=== PATIENT | male | born 1950 | race Caucasian/White ===

== ENCOUNTER 2016-10-08 09:37 | Inpatient (IN) ==
[2016-10-15] MEDS: Celecoxib 100 MG CAPSULE PO SCH
[2016-10-15] MEDS: Sennosides/Docusate Sodium TABLET PO SCH ×2 (00:01→22:16)
[2016-10-15] MEDS: Acetaminophen 325 MG TABLET PO SCH ×3 (00:02→18:10)
[2016-10-15] MEDS: *HR* LORazepam 1 MG TABLET PO PRN ×2 (00:03→22:17)
[2016-10-15 05:54] LABS: INR 2.9; Prothrombin Time 32.2 Seconds (9.4-12.1)
[2016-10-15 05:57] LABS: Activated Partial Thrombo Time 37.3 Seconds (26.0-36.0)
[2016-10-15 06:00] LABS: Basophils # 0.1 K/mcL (0.0-0.2); Basophils % 0.7 %; Eosinophils # 0.2 K/mcL (0.0-0.6); Eosinophils % 2.4 %; Hematocrit 29.2 % (37.5-50.1); Immature Granulocytes % 7.7 % (0-4); Lymphocytes # 0.6 K/mcL (0.6-4.6); Mean Corpuscular HGB Conc 30.8 g/dL (31.6-35.5); Mean Corpuscular Hemoglobin 27.2 pg (28.0-33.3); Mean Corpuscular Volume 88.2 fL (83.0-100.0); Mean Platelet Volume 9.5 fL (9.4-12.4); Monocytes # 0.5 K/mcL (0.0-1.3); Neutrophils # 5.3 K/mcL (1.6-8.9); Nucleated Red Blood Cells 0.3 /100 WBC (0); Platelet Count 398 K/mcL (140-400); Red Blood Count 3.31 M/mcL (4.19-5.50); Segmented Neutrophils % 74.2 %
[2016-10-15 06:05] LABS: Calcium 8.5 mg/dL (8.6-10.8)
[2016-10-15 06:14] LABS: Anisocytosis 1+ (Not Present); Platelet Estimate Normal (Normal)
[2016-10-15 06:17] LABS: Macrocytosis Present (Not Present); Microcytosis Present (Not Present)
[2016-10-15] MEDS: Spironolactone 25 MG TABLET PO SCH (08:21)
[2016-10-15] MEDS: MethylPREDNISolone 4 MG TABLET PO SCH ×3 (08:22→22:15)
[2016-10-15] MEDS: Ascorbic Acid 500 MG TABLET PO SCH (08:22)
--- NOTE | 2016-10-15 10:55 | Internal Med History&Physical ---
Date of Encounter: 10/15/16 Time of Encounter: 14:00 Assessment and Plan (1) CKD (chronic kidney disease) Current visit: Yes Status: Acute The changes in his renal function are noted but these are chronic. Qualifiers: Chronic kidney disease stage: stage 3 (moderate) Qualified Code(s): N18.3 - Chronic kidney disease, stage 3 (moderate) (2) HTN (hypertension) Current visit: Yes Status: Acute Blood pressure is controlled Qualifiers: Hypertension type: essential hypertension Qualified Code(s): I10 - Essential (primary) hypertension (3) History of lumbar laminectomy for spinal cord decompression Current visit: Yes Status: Acute Postop for the reasons above (4) Hx of decompressive lumbar laminectomy Current visit: Yes Status: Acute Postoperative the reason above. patient's third thoracic surgery. Internal Medicine - H&P: HPI Admitted From: Hospital to Hospital Transfer Plans for Post Hospital Care: Home History of present illness: Mr. Hunt is a 66 year old male Past Med Surg Social Fam HX - Past Medical History Medical history: arthritis, DVT, GERD, hyperlipidemia, hypertension, kidney stones, renal disease, other Psychiatric history: anxiety - Social History Smoking Status: Unknown if ever smoked Smokeless Tobacco Status: No Alcohol use: none Drug use: none - Family History Mother History Unknown: Yes Father History Unknown: Yes Internal Medicine - H&P: Meds Acetaminophen [Tylenol] 975 mg PO Q8HR 10/14/16 [History] Ascorbic Acid [C-1000] 1,000 mg PO DAILY 10/14/16 [History] Calcitriol [Rocaltrol] 0.25 mcg PO HS 10/14/16 [History] Celecoxib [Celebrex] 100 mg PO BID 10/14/16 [History] Cyclobenzaprine [Flexeril] 10 mg PO TID PRN 10/14/16 [History] Ferrous Sulfate [Iron] 325 mg PO BID 10/14/16 [History] HydrALAZINE 50 mg PO BID 10/14/16 [History] Hydroxychloroquine [Plaquenuil] 200 mg PO BID 10/14/16 [History] LORazepam [Ativan] 1 mg PO TID PRN 10/14/16 [History] Losartan [Cozaar] 25 mg PO DAILY 10/14/16 [History] MethylPREDNISolone [Medrol] 4 mg PO BID 10/14/16 [History] Metoprolol XL (24 HR) Succ [Toprol XL] 25 mg PO HS 10/14/16 [History] OxyCODONE Immed Rel [Roxicodone 5 MG] 5 mg PO Q4H PRN 10/14/16 [History] Paroxetine HCl [Paxil] 20 mg PO DAILY 10/14/16 [History] Quetiapine Fumarate [SEROquel] 12.5 mg PO HS 10/14/16 [History] Sennosides/Docusate Sodium [Senna-S Tablet] 1 tab PO HS 10/14/16 [History] Sodium Bicarbonate 650 mg PO BID 10/14/16 [History] Spironolact/Hydrochlorothiazid [Aldactazide 25-25 Tablet] 1 each PO DAILY [History] Warfarin [Coumadin] 4 mg PO 1800 10/14/16 [History] Zolpidem [Ambien] 5 mg PO HS PRN 10/14/16 [History] Allergies carvedilol [From Coreg] Allergy (Verified 10/14/16 20:57) Gastrointestinal Upset diphenhydramine [From Benadryl] Allergy (Verified 10/14/16 20:57) Chills All Systems PM: A 10-system review of systems was performed and is negative for pertinent findings except as documented above in the HPI. - Constitutional Vitals: Temp Pulse Resp BP Pulse Ox 98.5 F 110 16 125/82 94 L 10/15/16 07:05 10/15/16 07:05 10/15/16 07:05 10/15/16 07:05 10/15/16 07:05 - Head Head exam: Present: atraumatic, normal inspection, normocephalic - Neck Neck exam general surgery: Present: supple, trachea midline. Absent: lymphadenopathy - Respiratory Respiratory exam: Present: CTAB. Absent: accessory muscle use, rales, rhonchi, wheezes - Cardiovascular Cardiovascular exam: Present: RRR, +S1, +S2. Absent: diastolic murmur, gallop, rubs, systolic murmur - GI/Abdominal GI/Abdominal exam: Present: normal bowel sounds, soft, no peritoneal signs. Absent: distended, tenderness - Back Exam Back exam: Present: tenderness Additional comments: Patient's dressings are clean and dry. Internal Med - H&P Results - Labs CBC & Chem 7: 10/15/16 05:25 10/15/16 05:25 Labs: Short CBC 10/15/16 Range/Units 05:25 WBC 7.2 (4.3-11.1) K/mcL Hgb 9.0 L (12.9-16.9) g/dL Hct 29.2 L (37.5-50.1) % Plt Count 398 (140-400) K/mcL Neutrophils # 5.3 (1.6-8.9) K/mcL BMP 10/15/16 05:25 Sodium 139 Potassium 5.0 H Chloride 113 H Carbon Dioxide 17 L BUN 34 H Creatinine 1.60 H Glucose 98 Calcium 8.5 L Lab is stable for patient
--- NOTE | 2016-10-15 11:28 | Internal Med History&Physical ---
Date of Encounter: 10/20/16 Time of Encounter: 11:25 Assessment and Plan (1) HTN (hypertension) Current visit: No Status: Acute Loud pressures well controlled Qualifiers: Hypertension type: essential hypertension Qualified Code(s): I10 - Essential (primary) hypertension (2) History of lumbar laminectomy for spinal cord decompression Current visit: Yes Status: Acute The spinal cord compression and postop complications. (3) Hx of decompressive lumbar laminectomy Current visit: Yes Status: Acute Patient is spinal stenosis. An extensive surgery. CV because he had developed a fracture at T11 with severe kyphotic deformity because of his severe osteoporosis. He apparently developed a PE postop he has comorbidities of Jie Johan chronic kidney disease, disorder etc. He has hyperlipidemia hypertension and arthritis osteo myelitis (4) CKD (chronic kidney disease) Current visit: No Status: Acute Will follow. Qualifiers: Chronic kidney disease stage: stage 3 (moderate) Qualified Code(s): N18.3 - Chronic kidney disease, stage 3 (moderate) Internal Medicine - H&P: HPI Admitted From: Hospital to Hospital Transfer (Patient had severe degenerative thoracic disease. He had extensive rodding of his posterior thoracic vertebrae. ) History of present illness: Mr. Hunt is a 66 year old male Who is here now for rehabilitation after his extensive back surgery. Past Med Surg Social Fam HX - Past Medical History Medical history: arthritis, DVT (Patient by history apparently a PE postop.), GERD, hyperlipidemia, hypertension, kidney stones, renal disease, other Psychiatric history: anxiety - Social History Smoking Status: Unknown if ever smoked Smokeless Tobacco Status: No Alcohol use: none Drug use: none - Family History Mother History Unknown: Yes Father History Unknown: Yes Internal Medicine - H&P: Meds Acetaminophen [Tylenol] 975 mg PO Q8HR 10/14/16 [History] Ascorbic Acid [C-1000] 1,000 mg PO DAILY 10/14/16 [History] Calcitriol [Rocaltrol] 0.25 mcg PO HS 10/14/16 [History] Celecoxib [Celebrex] 100 mg PO BID 10/14/16 [History] Cyclobenzaprine [Flexeril] 10 mg PO TID PRN 10/14/16 [History] Ferrous Sulfate [Iron] 325 mg PO BID 10/14/16 [History] HydrALAZINE 50 mg PO BID 10/14/16 [History] Hydroxychloroquine [Plaquenuil] 200 mg PO BID 10/14/16 [History] LORazepam [Ativan] 1 mg PO TID PRN 10/14/16 [History] Losartan [Cozaar] 25 mg PO DAILY 10/14/16 [History] MethylPREDNISolone [Medrol] 4 mg PO BID 10/14/16 [History] Metoprolol XL (24 HR) Succ [Toprol XL] 25 mg PO HS 10/14/16 [History] OxyCODONE Immed Rel [Roxicodone 5 MG] 5 mg PO Q4H PRN 10/14/16 [History] Paroxetine HCl [Paxil] 20 mg PO DAILY 10/14/16 [History] Quetiapine Fumarate [SEROquel] 12.5 mg PO HS 10/14/16 [History] Sennosides/Docusate Sodium [Senna-S Tablet] 1 tab PO HS 10/14/16 [History] Sodium Bicarbonate 650 mg PO BID 10/14/16 [History] Spironolact/Hydrochlorothiazid [Aldactazide 25-25 Tablet] 1 each PO DAILY [History] Warfarin [Coumadin] 4 mg PO 1800 10/14/16 [History] Zolpidem [Ambien] 5 mg PO HS PRN 10/14/16 [History] Allergies carvedilol [From Coreg] Allergy (Verified 10/14/16 20:57) Gastrointestinal Upset diphenhydramine [From Benadryl] Allergy (Verified 10/14/16 20:57) Chills All Systems PM: A 10-system review of systems was performed and is negative for pertinent findings except as documented above in the HPI. - Constitutional Vitals: Temp Pulse Resp BP Pulse Ox 97.2 F L 104 18 115/71 96 10/15/16 10:55 10/15/16 10:55 10/15/16 10:55 10/15/16 10:55 10/15/16 10:55 - Head Head exam: Present: atraumatic, normal inspection, normocephalic - Neck Neck exam general surgery: Present: supple, trachea midline. Absent: lymphadenopathy - Respiratory Respiratory exam: Present: CTAB. Absent: accessory muscle use, rales, rhonchi, wheezes - Cardiovascular Cardiovascular exam: Present: RRR, +S1, +S2. Absent: diastolic murmur, gallop, rubs, systolic murmur - GI/Abdominal GI/Abdominal exam: Present: normal bowel sounds, soft, no peritoneal signs. Absent: distended, tenderness - Extremities Exam Extremities exam: Present: warm, radial pulses palpable and symetrical. Absent : calf tenderness, cyanotic, pedal edema Additional comments: Patient has very atrophic extremities. There are chronic changes of her arthritic and swan-neck deformities in his hands etc. 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 We will follow-up
[2016-10-15] MEDS: Celecoxib 200 MG CAPSULE PO SCH ×2 (12:59→22:15)
[2016-10-15] MEDS: *HR* OxyCODONE Immed Rel 5 MG TABLET PO PRN ×2 (14:42→22:18)
[2016-10-15] MEDS ORDERED: *HR* Warfarin 4 MG TABLET PO SCH (18:00)
[2016-10-15] MEDS: *HR* Warfarin 3 MG TABLET PO SCH (18:10)
[2016-10-15] MEDS: Metoprolol XL (24 HR) Succ 25 MG TAB.ER.24H PO SCH (22:17)
[2016-10-16] MEDS: Acetaminophen 325 MG TABLET PO SCH ×4 (01:00→22:19)
[2016-10-16 05:33] LABS: INR 3.5; Prothrombin Time 38.9 Seconds (9.4-12.1)
[2016-10-16] MEDS: Spironolactone 25 MG TABLET PO SCH (08:27)
[2016-10-16] MEDS: Ascorbic Acid 500 MG TABLET PO SCH (08:27)
[2016-10-16] MEDS: Celecoxib 200 MG CAPSULE PO SCH ×2 (08:28→22:18)
[2016-10-16] MEDS: MethylPREDNISolone 4 MG TABLET PO SCH ×2 (08:29→22:18)
[2016-10-16] MEDS: *HR* OxyCODONE Immed Rel 5 MG TABLET PO PRN ×2 (11:46→16:45)
--- NOTE | 2016-10-16 13:59 | Internal Med Progress Note ---
Date of Encounter: 10/15/16 Time of Encounter: 14:00 - Assessment and plan (1) CKD (chronic kidney disease) Current Visit: Yes Status: Acute Assessment and plan: Changes noted but are stable Qualifiers: Chronic kidney disease stage: stage 3 (moderate) Qualified Code(s): N18.3 - Chronic kidney disease, stage 3 (moderate) (2) HTN (hypertension) Current Visit: Yes Status: Acute Assessment and plan: Blood pressure is well controlled fact a little low Qualifiers: Hypertension type: essential hypertension Qualified Code(s): I10 - Essential (primary) hypertension (3) History of lumbar laminectomy for spinal cord decompression Current Visit: Yes Status: Acute Assessment and plan: Agents here for rehabilitation status post lumbar laminectomy decompression (4) Hx of decompressive lumbar laminectomy Current Visit: Yes Status: Acute Assessment and plan: This is the surgery for which patient is here receiving therapy. This is his third similar surgery - Subjective Interval history: Patient had some pain which was relieved by Percocet and generally is working with the therapist - Constitutional Vitals: Temp Pulse Resp BP Pulse Ox 98.6 F 88 16 103/49 96 10/16/16 07:31 10/16/16 07:31 10/16/16 07:31 10/16/16 07:31 10/16/16 07:31 - Head Head exam: Present: atraumatic, normocephalic - Respiratory Respiratory exam: Present: CTAB. Absent: accessory muscle use, rales, rhonchi, wheezes - Cardiovascular Cardiovascular exam: Present: RRR, +S1, +S2. Absent: diastolic murmur, gallop, rubs, systolic murmur - GI/Abdominal GI/Abdominal exam: Present: normal bowel sounds, soft, no peritoneal signs. Absent: distended, tenderness Internal Medicine: Result - Labs CBC & Chem 7: 10/15/16 05:25 10/15/16 05:25 Labs: Well lab is stable - ABG Interpretation ABG results: PT/INR, D-dimer PT 38.9 Seconds (9.4-12.1) H 10/16/16 05:10 Consult Discharge Plan - Plan Referrals: Louis Farrar MD [Primary Care Provider] -
[2016-10-16] MEDS: *HR* Warfarin 3 MG TABLET PO SCH (18:23)
[2016-10-16] MEDS: Metoprolol XL (24 HR) Succ 25 MG TAB.ER.24H PO SCH (22:19)
[2016-10-16] MEDS: *HR* LORazepam 1 MG TABLET PO PRN (22:19)
[2016-10-16] MEDS: Sennosides/Docusate Sodium TABLET PO SCH (22:19)
[2016-10-17 05:36] LABS: Prothrombin Time 55.2 Seconds (9.4-12.1)
[2016-10-17 05:37] LABS: INR 4.9
[2016-10-17] MEDS: Acetaminophen 325 MG TABLET PO SCH ×2 (09:55→17:39)
[2016-10-17] MEDS: Celecoxib 200 MG CAPSULE PO SCH ×2 (09:56→21:36)
[2016-10-17] MEDS: MethylPREDNISolone 4 MG TABLET PO SCH ×2 (09:56→21:37)
[2016-10-17] MEDS: Ascorbic Acid 500 MG TABLET PO SCH (09:56)
[2016-10-17] MEDS: Spironolactone 25 MG TABLET PO SCH (09:56)
[2016-10-17] MEDS: Celecoxib 100 MG CAPSULE PO SCH (10:06)
--- NOTE | 2016-10-17 12:28 | Internal Med Progress Note ---
Date of Encounter: 10/17/16 Time of Encounter: 12:00 - Assessment and plan (1) CKD (chronic kidney disease) Current Visit: Yes Status: Acute Assessment and plan: Chronic noted Qualifiers: Chronic kidney disease stage: stage 3 (moderate) Qualified Code(s): N18.3 - Chronic kidney disease, stage 3 (moderate) (2) HTN (hypertension) Current Visit: Yes Status: Acute Assessment and plan: Blood pressures well controlled Qualifiers: Hypertension type: essential hypertension Qualified Code(s): I10 - Essential (primary) hypertension (3) History of lumbar laminectomy for spinal cord decompression Current Visit: Yes Status: Acute Assessment and plan: This the reason for the admission for rehabilitation (4) Hx of decompressive lumbar laminectomy Current Visit: Yes Status: Acute Assessment and plan: The above - Subjective Interval history: Patient had some pain which was relieved by Percocet and generally is working with the therapist. Working with the therapist and having no complaints today - Constitutional Vitals: Temp Pulse Resp BP Pulse Ox 97.2 F L 71 18 113/74 96 10/17/16 07:34 10/17/16 07:34 10/17/16 07:34 10/17/16 07:34 10/17/16 07:34 - Head Head exam: Present: atraumatic, normocephalic - Neck Neck exam general surgery: Present: supple, trachea midline. Absent: lymphadenopathy - Respiratory Respiratory exam: Present: CTAB. Absent: accessory muscle use, rales, rhonchi, wheezes - Cardiovascular Cardiovascular exam: Present: RRR, +S1, +S2. Absent: diastolic murmur, gallop, rubs, systolic murmur Internal Medicine: Result - Labs CBC & Chem 7: 10/15/16 05:25 10/15/16 05:25 Labs: Labs unchanged - ABG Interpretation ABG results: PT/INR, D-dimer PT 55.2 Seconds (9.4-12.1) H* 10/17/16 05:00 Consult Discharge Plan - Plan Referrals: Louis Farrar MD [Primary Care Provider] -
[2016-10-17] MEDS: MOM Conc 10 ML UD.LIQ PO SCH ×2 (17:38→21:37)
[2016-10-17] MEDS: Sennosides/Docusate Sodium TABLET PO SCH ×2 (17:39→21:36)
[2016-10-17] MEDS: Metoprolol XL (24 HR) Succ 25 MG TAB.ER.24H PO SCH (21:36)
[2016-10-17] MEDS: *HR* LORazepam 1 MG TABLET PO PRN (21:36)
[2016-10-18] MEDS: Acetaminophen 325 MG TABLET PO SCH ×3 (01:00→16:26)
[2016-10-18 05:47] LABS: Prothrombin Time 53.1 Seconds (9.4-12.1)
[2016-10-18 05:48] LABS: INR 4.7
[2016-10-18] MEDS: Ascorbic Acid 500 MG TABLET PO SCH (09:21)
[2016-10-18] MEDS: Celecoxib 200 MG CAPSULE PO SCH ×2 (09:21→21:02)
[2016-10-18] MEDS: Spironolactone 25 MG TABLET PO SCH (09:22)
[2016-10-18] MEDS: MethylPREDNISolone 4 MG TABLET PO SCH ×2 (09:22→21:03)
[2016-10-18] MEDS: *HR* LORazepam 1 MG TABLET PO PRN (21:01)
[2016-10-18] MEDS: Metoprolol XL (24 HR) Succ 25 MG TAB.ER.24H PO SCH (21:02)
[2016-10-18] MEDS: Sennosides/Docusate Sodium TABLET PO SCH (21:03)
[2016-10-18] MEDS: MOM Conc 10 ML UD.LIQ PO SCH (21:13)
--- NOTE | 2016-10-18 23:02 | Internal Med Progress Note ---
Date of Encounter: 10/18/16 Time of Encounter: 22:59 - Assessment and plan (1) H/O spinal fusion Current Visit: Yes Status: Acute Assessment and plan: Pain well-controlled. PT OT continue to show improvement in terms of transfer gait. Increasing distance as tolerated. - Time Spent With Patient less than 15 minutes - Subjective Interval history: Feeling better. Pain controlled with Tylenol. Constipation resolved. No shortness of breath. No chest pain. No nausea vomiting abdominal pain - Constitutional Vitals: Temp Pulse Resp BP Pulse Ox 98.2 F 94 15 125/68 95 10/18/16 18:55 10/18/16 18:55 10/18/16 18:55 10/18/16 18:55 10/18/16 18:55 General appearance: Present: A&O X 3, pleasant, no acute distress - Respiratory Respiratory exam: Present: CTAB. Absent: accessory muscle use, rales, rhonchi, wheezes - Cardiovascular Cardiovascular exam: Present: RRR, +S1, +S2. Absent: diastolic murmur, gallop, rubs, systolic murmur - GI/Abdominal GI/Abdominal exam: Present: normal bowel sounds, soft, no peritoneal signs. Absent: distended, tenderness - Extremities Exam Extremities exam: Present: warm, radial pulses palpable and symetrical. Absent : calf tenderness, cyanotic, pedal edema - Incison Incision: Present: clean and dry - Neurological Exam Neurological exam: Present: CN II-XII intact, oriented X3, no focal deficits. Absent: pronater drift, facial droop, speech deficit Internal Medicine: Result - Labs CBC & Chem 7: 10/15/16 05:25 10/15/16 05:25 - ABG Interpretation ABG results: PT/INR, D-dimer PT 53.1 Seconds (9.4-12.1) H* 10/18/16 05:08 Consult Discharge Plan - Plan Referrals: Louis Farrar MD [Primary Care Provider] -
[2016-10-19] MEDS: Acetaminophen 325 MG TABLET PO SCH ×3 (00:30→16:19)
[2016-10-19 05:32] LABS: Basophils % 0.5 %; Eosinophils # 0.2 K/mcL (0.0-0.6); Hematocrit 25.1 % (37.5-50.1); Hemoglobin 7.8 g/dL (12.9-16.9); Immature Granulocytes % 1.6 % (0-4); Lymphocytes # 0.9 K/mcL (0.6-4.6); Lymphocytes % 23.8 %; Mean Corpuscular HGB Conc 31.1 g/dL (31.6-35.5); Mean Corpuscular Hemoglobin 27.1 pg (28.0-33.3); Mean Corpuscular Volume 87.2 fL (83.0-100.0); Mean Platelet Volume 9.4 fL (9.4-12.4); Monocytes # 0.5 K/mcL (0.0-1.3); Monocytes % 12.2 %; Neutrophils # 2.2 K/mcL (1.6-8.9); Platelet Count 382 K/mcL (140-400); Red Blood Count 2.88 M/mcL (4.19-5.50); Red Cell Distribution Width 17.7 % (11.5-14.5); Segmented Neutrophils % 57.9 %
[2016-10-19 05:33] LABS: INR 2.8; Prothrombin Time 31.3 Seconds (9.4-12.1)
[2016-10-19 05:47] LABS: Calcium 8.4 mg/dL (8.6-10.8); Potassium 4.8 mEq/L (3.5-4.5)
[2016-10-19] MEDS: MethylPREDNISolone 4 MG TABLET PO SCH ×2 (09:46→23:12)
[2016-10-19] MEDS: Spironolactone 25 MG TABLET PO SCH (09:46)
[2016-10-19] MEDS: Celecoxib 200 MG CAPSULE PO SCH ×2 (09:46→23:13)
[2016-10-19] MEDS: Ascorbic Acid 500 MG TABLET PO SCH (09:46)
--- NOTE | 2016-10-19 14:05 | Internal Med Progress Note ---
Date of Encounter: 10/19/16 Time of Encounter: 14:00 - Assessment and plan (1) CKD (chronic kidney disease) Current Visit: Yes Status: Acute Assessment and plan: Chronic kidney disease is noted Qualifiers: Chronic kidney disease stage: stage 3 (moderate) Qualified Code(s): N18.3 - Chronic kidney disease, stage 3 (moderate) (2) HTN (hypertension) Current Visit: Yes Status: Acute Assessment and plan: Blood pressure well controlled Qualifiers: Hypertension type: essential hypertension Qualified Code(s): I10 - Essential (primary) hypertension (3) History of lumbar laminectomy for spinal cord decompression Current Visit: Yes Status: Acute Assessment and plan: Third procedure. (4) Hx of decompressive lumbar laminectomy Current Visit: Yes Status: Acute Assessment and plan: Patient underwent most recently decompressive lumbar laminectomy with a very extensive incision. - Subjective Interval history: Ricardo is generally cooperating occasionally says is too tired. His endurance is very poor but considered what he has been through. He has atrophy of all 4 extremities is understandable - Constitutional Vitals: Temp Pulse Resp BP Pulse Ox 97.1 F L 96 18 127/80 95 10/19/16 07:22 10/19/16 07:22 10/19/16 07:22 10/19/16 07:22 10/18/16 18:55 General appearance: Present: A&O X 3, pleasant, no acute distress - Head Head exam: Present: normal inspection - Neck Neck exam general surgery: Present: supple, trachea midline. Absent: lymphadenopathy - Respiratory Respiratory exam: Present: CTAB. Absent: accessory muscle use, rales, rhonchi, wheezes - Cardiovascular Cardiovascular exam: Present: RRR, +S1, +S2. Absent: diastolic murmur, gallop, rubs, systolic murmur - GI/Abdominal GI/Abdominal exam: Present: normal bowel sounds, soft, no peritoneal signs. Absent: distended, tenderness Internal Medicine: Result - Labs CBC & Chem 7: 10/19/16 05:00 10/19/16 05:00 Labs: Short CBC 10/19/16 Range/Units 05:00 WBC 3.8 L (4.3-11.1) K/mcL Hgb 7.8 L (12.9-16.9) g/dL Hct 25.1 L (37.5-50.1) % Plt Count 382 (140-400) K/mcL Neutrophils # 2.2 (1.6-8.9) K/mcL BMP 10/19/16 05:00 Sodium 139 Potassium 4.8 H Chloride 111 H Carbon Dioxide 17 L BUN 43 H Creatinine 1.79 H Glucose 97 Calcium 8.4 L Follow his BUN and creatinine CE does have chronic renal failure now. Also need to follow H&H's to make sure they do not drop any further. - ABG Interpretation ABG results: PT/INR, D-dimer PT 31.3 Seconds (9.4-12.1) H 10/19/16 05:00 Consult Discharge Plan - Plan Referrals: Louis Farrar MD [Primary Care Provider] -
[2016-10-19] MEDS: *HR* OxyCODONE Immed Rel 5 MG TABLET PO PRN ×2 (16:18→23:18)
[2016-10-19] MEDS: *HR* Warfarin 2 MG TABLET PO SCH (16:19)
[2016-10-19] MEDS: Metoprolol XL (24 HR) Succ 25 MG TAB.ER.24H PO SCH (23:14)
[2016-10-19] MEDS: *HR* LORazepam 1 MG TABLET PO PRN (23:14)
[2016-10-19] MEDS: Sennosides/Docusate Sodium TABLET PO SCH (23:15)
[2016-10-19] MEDS: MOM Conc 10 ML UD.LIQ PO SCH (23:29)
[2016-10-20] MEDS: Acetaminophen 325 MG TABLET PO SCH ×3 (00:16→16:16)
[2016-10-20 05:35] LABS: Hematocrit 26.4 % (37.5-50.1); Hemoglobin 8.2 g/dL (12.9-16.9)
[2016-10-20 05:36] LABS: INR 2.3; Prothrombin Time 25.1 Seconds (9.4-12.1)
[2016-10-20 05:50] LABS: Calcium 8.6 mg/dL (8.6-10.8)
[2016-10-20] MEDS: *HR* OxyCODONE Immed Rel 5 MG TABLET PO PRN ×2 (09:04→21:38)
[2016-10-20] MEDS: MethylPREDNISolone 4 MG TABLET PO SCH ×2 (09:04→21:35)
[2016-10-20] MEDS: Celecoxib 200 MG CAPSULE PO SCH ×2 (09:04→21:34)
[2016-10-20] MEDS: Spironolactone 25 MG TABLET PO SCH ×2 (09:04→09:05)
[2016-10-20] MEDS: Ascorbic Acid 500 MG TABLET PO SCH (09:04)
[2016-10-20] MEDS: Ondansetron ODT 4 MG TAB.RAPDIS SL PRN (12:14)
--- NOTE | 2016-10-20 13:37 | Internal Med Progress Note ---
Date of Encounter: 10/20/16 Time of Encounter: 13:00 - Assessment and plan (1) HTN (hypertension) Current Visit: No Status: Acute Assessment and plan: Blood pressure is actually low right now we will have to watch Qualifiers: Hypertension type: essential hypertension Qualified Code(s): I10 - Essential (primary) hypertension (2) History of lumbar laminectomy for spinal cord decompression Current Visit: Yes Status: Acute Assessment and plan: Juanita due to chronic problems. (3) Hx of decompressive lumbar laminectomy Current Visit: Yes Status: Acute Assessment and plan: status post decompression laminectomy (4) CKD (chronic kidney disease) Current Visit: No Status: Acute Assessment and plan: History of chronic kidney disease is noted Qualifiers: Chronic kidney disease stage: stage 3 (moderate) Qualified Code(s): N18.3 - Chronic kidney disease, stage 3 (moderate) - Time Spent With Patient less than 15 minutes - Subjective Interval history: Ricardo is generally cooperating occasionally says is too tired. His endurance is very poor but considered what he has been through. He has atrophy of all 4 extremities is understandable. This morning patient's blood pressure was low and his meds were held he may be right now overmedicated. - Constitutional Vitals: Temp Pulse Resp BP Pulse Ox 98.2 F 93 16 110/69 96 10/20/16 07:00 10/20/16 11:49 10/20/16 11:49 10/20/16 11:49 10/20/16 11:49 General appearance: Present: A&O X 3, pleasant, no acute distress - Head Head exam: Present: atraumatic, normal inspection, normocephalic - Neck Neck exam general surgery: Present: supple, trachea midline. Absent: lymphadenopathy - Respiratory Respiratory exam: Present: CTAB. Absent: accessory muscle use, rales, rhonchi, wheezes - Cardiovascular Cardiovascular exam: Present: RRR, +S1, +S2. Absent: diastolic murmur, gallop, rubs, systolic murmur - GI/Abdominal GI/Abdominal exam: Present: normal bowel sounds, soft, no peritoneal signs. Absent: distended, tenderness Internal Medicine: Result - Labs CBC & Chem 7: 10/20/16 05:15 10/20/16 05:15 Labs: Short CBC 10/20/16 Range/Units 05:15 Hgb 8.2 L (12.9-16.9) g/dL Hct 26.4 L (37.5-50.1) % BMP 10/20/16 05:15 Sodium 140 Potassium 5.0 H Chloride 112 H Carbon Dioxide 19 BUN 44 H Creatinine 1.73 H Glucose 99 Calcium 8.6 Lab in stable consider history of acute chronic renal failure - ABG Interpretation ABG results: PT/INR, D-dimer PT 25.1 Seconds (9.4-12.1) H 10/20/16 05:15 Consult Discharge Plan - Plan Referrals: Louis Farrar MD [Primary Care Provider] -
[2016-10-20] MEDS: *HR* Warfarin 2 MG TABLET PO SCH (17:43)
[2016-10-20] MEDS: Sennosides/Docusate Sodium TABLET PO SCH (21:36)
[2016-10-20] MEDS: *HR* LORazepam 1 MG TABLET PO PRN (21:37)
[2016-10-20] MEDS: MOM Conc 10 ML UD.LIQ PO SCH (21:38)
[2016-10-21] MEDS: Acetaminophen 325 MG TABLET PO SCH ×3 (01:00→16:22)
[2016-10-21 05:35] LABS: INR 2.7; Prothrombin Time 29.9 Seconds (9.4-12.1)
[2016-10-21] MEDS: Celecoxib 200 MG CAPSULE PO SCH ×2 (09:35→21:41)
[2016-10-21] MEDS: Ascorbic Acid 500 MG TABLET PO SCH (09:36)
[2016-10-21] MEDS: MethylPREDNISolone 4 MG TABLET PO SCH ×2 (09:36→21:43)
--- NOTE | 2016-10-21 12:23 | Internal Med Progress Note ---
Date of Encounter: 10/21/16 Time of Encounter: 12:22 - Assessment and plan (1) H/O spinal fusion Current Visit: Yes Status: Acute Assessment and plan: Pain well-controlled. PT OT continue to show improvement in terms of transfer gait. Increasing distance as tolerated. - Time Spent With Patient less than 15 minutes - Subjective Interval history: Feeling better. Pain controlled with Tylenol. Constipation resolved. No shortness of breath. No chest pain. No nausea vomiting abdominal pain - Constitutional Vitals: Temp Pulse Resp BP Pulse Ox 98.1 F 87 16 105/66 95 10/21/16 07:00 10/21/16 07:00 10/21/16 07:00 10/21/16 07:00 10/21/16 07:00 General appearance: Present: A&O X 3, pleasant, no acute distress - Respiratory Respiratory exam: Present: CTAB. Absent: accessory muscle use, rales, rhonchi, wheezes - Cardiovascular Cardiovascular exam: Present: RRR, +S1, +S2. Absent: diastolic murmur, gallop, rubs, systolic murmur - GI/Abdominal GI/Abdominal exam: Present: normal bowel sounds, soft, no peritoneal signs. Absent: distended, tenderness - Extremities Exam Extremities exam: Present: warm, radial pulses palpable and symetrical. Absent : calf tenderness, cyanotic, pedal edema - Neurological Exam Neurological exam: Present: CN II-XII intact, oriented X3, no focal deficits. Absent: pronater drift, facial droop, speech deficit Internal Medicine: Result - Labs CBC & Chem 7: 10/20/16 05:15 10/20/16 05:15 - ABG Interpretation ABG results: PT/INR, D-dimer PT 29.9 Seconds (9.4-12.1) H 10/21/16 05:20 Consult Discharge Plan - Plan Referrals: Louis Farrar MD [Primary Care Provider] -
[2016-10-21] MEDS: *HR* Warfarin 2 MG TABLET PO SCH (17:22)
[2016-10-21] MEDS: MOM Conc 10 ML UD.LIQ PO SCH (21:43)
[2016-10-21] MEDS: Sennosides/Docusate Sodium TABLET PO SCH (21:45)
[2016-10-21] MEDS: *HR* LORazepam 1 MG TABLET PO PRN (21:46)
[2016-10-21] MEDS: *HR* OxyCODONE Immed Rel 5 MG TABLET PO PRN (23:40)
[2016-10-22] MEDS: Acetaminophen 325 MG TABLET PO SCH ×3 (01:00→18:10)
[2016-10-22] MEDS: Celecoxib 200 MG CAPSULE PO SCH ×2 (09:10→20:42)
[2016-10-22] MEDS: Ascorbic Acid 500 MG TABLET PO SCH (09:10)
[2016-10-22] MEDS: MethylPREDNISolone 4 MG TABLET PO SCH ×2 (09:11→20:44)
[2016-10-22] MEDS: Spironolactone 25 MG TABLET PO SCH (09:11)
[2016-10-22] MEDS: *HR* OxyCODONE Immed Rel 5 MG TABLET PO PRN ×2 (12:30→20:43)
--- NOTE | 2016-10-22 14:50 | Internal Med Progress Note ---
Date of Encounter: 10/22/16 Time of Encounter: 14:50 - Assessment and plan (1) H/O spinal fusion Current Visit: Yes Status: Acute Assessment and plan: Pain well-controlled. PT OT continue to show improvement in terms of transfer gait. Increasing distance as tolerated. - Time Spent With Patient less than 15 minutes - Subjective Interval history: Feeling better. Pain controlled with Tylenol. Constipation resolved. No shortness of breath. No chest pain. No nausea vomiting abdominal pain - Constitutional Vitals: Temp Pulse Resp BP Pulse Ox 97.2 F L 94 16 133/62 96 10/22/16 07:00 10/22/16 07:00 10/22/16 07:00 10/22/16 07:00 10/22/16 07:00 General appearance: Present: A&O X 3, pleasant, no acute distress - Respiratory Respiratory exam: Present: CTAB. Absent: accessory muscle use, rales, rhonchi, wheezes - Cardiovascular Cardiovascular exam: Present: RRR, +S1, +S2. Absent: diastolic murmur, gallop, rubs, systolic murmur - GI/Abdominal GI/Abdominal exam: Present: normal bowel sounds, soft, no peritoneal signs. Absent: distended, tenderness - Extremities Exam Extremities exam: Present: warm, radial pulses palpable and symetrical. Absent : calf tenderness, cyanotic, pedal edema Internal Medicine: Result - Labs CBC & Chem 7: 10/20/16 05:15 10/20/16 05:15 - ABG Interpretation ABG results: PT/INR, D-dimer PT 29.9 Seconds (9.4-12.1) H 10/21/16 05:20 Consult Discharge Plan - Plan Referrals: Louis Farrar MD [Primary Care Provider] -
[2016-10-22] MEDS: *HR* Warfarin 2 MG TABLET PO SCH (18:10)
[2016-10-22] MEDS: *HR* LORazepam 1 MG TABLET PO PRN (20:42)
[2016-10-22] MEDS: MOM Conc 10 ML UD.LIQ PO SCH (20:44)
[2016-10-22] MEDS: Sennosides/Docusate Sodium TABLET PO SCH (20:44)
[2016-10-23] MEDS: Acetaminophen 325 MG TABLET PO SCH ×4 (00:53→23:44)
[2016-10-23 05:47] LABS: INR 3.4; Prothrombin Time 38.1 Seconds (9.4-12.1)
[2016-10-23] MEDS: Celecoxib 200 MG CAPSULE PO SCH ×2 (08:09→20:52)
[2016-10-23] MEDS: MethylPREDNISolone 4 MG TABLET PO SCH ×2 (08:11→20:52)
[2016-10-23] MEDS: Ascorbic Acid 500 MG TABLET PO SCH (08:11)
[2016-10-23] MEDS: Spironolactone 25 MG TABLET PO SCH (08:12)
--- NOTE | 2016-10-23 10:35 | Internal Med Progress Note ---
Date of Encounter: 10/23/16 Time of Encounter: 10:34 - Assessment and plan (1) H/O spinal fusion Current Visit: Yes Status: Acute Assessment and plan: Pain well-controlled. PT OT continue to show improvement in terms of transfer gait. Increasing distance as tolerated. - Time Spent With Patient less than 15 minutes - Subjective Interval history: Feeling better. Pain controlled with Tylenol. . No shortness of breath. No chest pain. No nausea vomiting abdominal pain - Constitutional Vitals: Temp Pulse Resp BP Pulse Ox 98.0 F 96 16 167/80 99 10/23/16 07:00 10/23/16 07:00 10/23/16 07:00 10/23/16 07:00 10/23/16 07:00 General appearance: Present: A&O X 3, pleasant, no acute distress - Respiratory Respiratory exam: Present: CTAB. Absent: accessory muscle use, rales, rhonchi, wheezes - Cardiovascular Cardiovascular exam: Present: RRR, +S1, +S2. Absent: diastolic murmur, gallop, rubs, systolic murmur - GI/Abdominal GI/Abdominal exam: Present: normal bowel sounds, soft, no peritoneal signs. Absent: distended, tenderness - Extremities Exam Extremities exam: Present: warm, radial pulses palpable and symetrical. Absent : calf tenderness, cyanotic, pedal edema - Incison Incision: Present: clean and dry Internal Medicine: Result - Labs CBC & Chem 7: 10/20/16 05:15 10/20/16 05:15 - ABG Interpretation ABG results: PT/INR, D-dimer PT 38.1 Seconds (9.4-12.1) H 10/23/16 05:25 Consult Discharge Plan - Plan Referrals: Louis Farrar MD [Primary Care Provider] -
[2016-10-23] MEDS: Sennosides/Docusate Sodium TABLET PO SCH (20:52)
[2016-10-23] MEDS: *HR* LORazepam 1 MG TABLET PO PRN (20:52)
[2016-10-23] MEDS: *HR* OxyCODONE Immed Rel 5 MG TABLET PO PRN (20:53)
[2016-10-23] MEDS: MOM Conc 10 ML UD.LIQ PO SCH (20:54)
--- NOTE | 2016-10-24 08:41 | Internal Med Progress Note ---
Date of Encounter: 10/24/16 Time of Encounter: 08:39 - Assessment and plan (1) H/O spinal fusion Current Visit: Yes Status: Acute Assessment and plan: Pain well-controlled. PT OT continue to show improvement in terms of transfer gait. Increasing distance as tolerated. (2) PUD (peptic ulcer disease) Current Visit: Yes Status: Chronic Assessment and plan: We will start Prilosec - Time Spent With Patient less than 15 minutes - Subjective Interval history: Complains of acid reflux symptoms in the past 2 days. He is to take something for acid stomach at home. Pain controlled with Tylenol. . No shortness of breath. No chest pain. No nausea vomiting abdominal pain - Constitutional Vitals: Temp Pulse Resp BP Pulse Ox 98.2 F 98 20 160/103 97 10/24/16 08:00 10/24/16 08:00 10/24/16 08:00 10/24/16 08:00 10/24/16 08:00 General appearance: Present: A&O X 3, pleasant, no acute distress - Respiratory Respiratory exam: Present: CTAB. Absent: accessory muscle use, rales, rhonchi, wheezes - Cardiovascular Cardiovascular exam: Present: RRR, +S1, +S2. Absent: diastolic murmur, gallop, rubs, systolic murmur - GI/Abdominal GI/Abdominal exam: Present: normal bowel sounds, soft - Incison Incision: Present: clean and dry Internal Medicine: Result - Labs CBC & Chem 7: 10/20/16 05:15 10/20/16 05:15 - ABG Interpretation ABG results: PT/INR, D-dimer PT 38.1 Seconds (9.4-12.1) H 10/23/16 05:25 Consult Discharge Plan - Plan Referrals: Louis Farrar MD [Primary Care Provider] -
[2016-10-24] MEDS: Celecoxib 200 MG CAPSULE PO SCH ×2 (08:53→21:37)
[2016-10-24] MEDS: MethylPREDNISolone 4 MG TABLET PO SCH ×2 (08:53→21:37)
[2016-10-24] MEDS: Acetaminophen 325 MG TABLET PO SCH ×2 (08:53→16:42)
[2016-10-24] MEDS: Ascorbic Acid 500 MG TABLET PO SCH (08:53)
[2016-10-24] MEDS: Spironolactone 25 MG TABLET PO SCH (08:54)
[2016-10-24] MEDS: Ondansetron ODT 4 MG TAB.RAPDIS SL PRN ×2 (12:58→19:54)
[2016-10-24] MEDS: Sennosides/Docusate Sodium TABLET PO SCH (21:39)
[2016-10-24] MEDS: *HR* LORazepam 1 MG TABLET PO PRN (21:39)
[2016-10-24] MEDS: MOM Conc 10 ML UD.LIQ PO SCH (21:40)
[2016-10-25] MEDS: Acetaminophen 325 MG TABLET PO SCH ×4 (03:29→17:24)
[2016-10-25 05:20] LABS: INR 2.1; Prothrombin Time 23.3 Seconds (9.4-12.1)
[2016-10-25 05:30] LABS: Basophils # 0.1 K/mcL (0.0-0.2); Eosinophils # 0.1 K/mcL (0.0-0.6); Eosinophils % 2.5 %; Hematocrit 27.8 % (37.5-50.1); Hemoglobin 8.8 g/dL (12.9-16.9); Immature Granulocytes % 7.2 % (0-4); Lymphocytes # 1.7 K/mcL (0.6-4.6); Lymphocytes % 33.7 %; Mean Corpuscular HGB Conc 31.7 g/dL (31.6-35.5); Mean Corpuscular Hemoglobin 27.2 pg (28.0-33.3); Mean Corpuscular Volume 85.8 fL (83.0-100.0); Monocytes # 0.6 K/mcL (0.0-1.3); Monocytes % 12.3 %; Neutrophils # 2.2 K/mcL (1.6-8.9); Platelet Count 328 K/mcL (140-400); Red Blood Count 3.24 M/mcL (4.19-5.50); Red Cell Distribution Width 17.2 % (11.5-14.5); Segmented Neutrophils % 43.3 %
[2016-10-25] MEDS: Ascorbic Acid 500 MG TABLET PO SCH (08:40)
[2016-10-25] MEDS: MethylPREDNISolone 4 MG TABLET PO SCH ×2 (08:40→22:12)
[2016-10-25] MEDS: Spironolactone 25 MG TABLET PO SCH (08:40)
[2016-10-25] MEDS: *HR* OxyCODONE Immed Rel 5 MG TABLET PO PRN (08:41)
[2016-10-25] MEDS: Celecoxib 200 MG CAPSULE PO SCH ×2 (08:41→22:12)
[2016-10-25] MEDS: Ondansetron ODT 4 MG TAB.RAPDIS SL PRN (09:59)
[2016-10-25] MEDS: *HR* LORazepam 1 MG TABLET PO PRN (11:45)
[2016-10-25] MEDS ORDERED: Ketorolac 60 MG/2 ML VIAL IM ONE (13:36)
[2016-10-25] MEDS ORDERED: Ketorolac 30 MG/ML VIAL IM ONE (13:48)
[2016-10-25] MEDS: *HR* Warfarin 2 MG TABLET PO SCH (17:25)
[2016-10-25] MEDS: Sennosides/Docusate Sodium TABLET PO SCH (22:12)
[2016-10-25] MEDS: MOM Conc 10 ML UD.LIQ PO SCH (22:20)
--- NOTE | 2016-10-26 03:20 | Internal Med Progress Note ---
Date of Encounter: 10/26/16 Time of Encounter: 03:17 - Assessment and plan (1) H/O spinal fusion Current Visit: Yes Status: Acute Assessment and plan: Pain well-controlled. PT OT continue to show improvement in terms of transfer gait. Increasing distance as tolerated. (2) PUD (peptic ulcer disease) Current Visit: Yes Status: Chronic Assessment and plan: Seems to be improving since starting Prilosec (3) Cephalgia Current Visit: Yes Status: Chronic Assessment and plan: CT head did not show any acute intracranial pathology. We will continue to treat symptomatically. Qualifiers: Headache type: tension-type Headache chronicity pattern: chronic headache Intractability: not intractable Qualified Code(s): G44.229 - Chronic tension -type headache, not intractable - Time Spent With Patient less than 15 minutes - Subjective Interval history: . Has been complaining of a headache as his temporal region for the past 24 hours on and off. Partial relief with Tylenol and Toradol. He states that he gets chronic headaches similar to this. . No shortness of breath. No chest pain. No nausea vomiting abdominal pain - Constitutional Vitals: Temp Pulse Resp BP Pulse Ox 97.9 F 101 16 112/82 95 10/25/16 19:00 10/25/16 19:00 10/25/16 19:00 10/25/16 19:00 10/25/16 19:00 General appearance: Present: A&O X 3, pleasant, no acute distress - Neck Neck exam general surgery: Present: supple, trachea midline. Absent: lymphadenopathy - Respiratory Respiratory exam: Present: CTAB. Absent: accessory muscle use, rales, rhonchi, wheezes - Cardiovascular Cardiovascular exam: Present: RRR, +S1, +S2. Absent: diastolic murmur, gallop, rubs, systolic murmur - Extremities Exam Extremities exam: Present: warm, radial pulses palpable and symetrical. Absent : calf tenderness, cyanotic, pedal edema - Neurological Exam Neurological exam: Present: CN II-XII intact, oriented X3, no focal deficits. Absent: pronater drift, facial droop, speech deficit Internal Medicine: Result - Labs CBC & Chem 7: 10/25/16 05:10 10/20/16 05:15 Labs: Short CBC 10/25/16 Range/Units 05:10 WBC 5.1 (4.3-11.1) K/mcL Hgb 8.8 L (12.9-16.9) g/dL Hct 27.8 L (37.5-50.1) % Plt Count 328 (140-400) K/mcL Neutrophils # 2.2 (1.6-8.9) K/mcL - ABG Interpretation ABG results: PT/INR, D-dimer PT 23.3 Seconds (9.4-12.1) H 10/25/16 05:10 - Impressions Impressions Head CT 10/25/16 17:36 IMPRESSION: No acute intracranial abnormality. D/ / Jaime Grossman MD / Jaime Grossman MD Interpreting Provider: Jaime Grossman MD Consult Discharge Plan - Plan Referrals: Louis Farrar MD [Primary Care Provider] -
[2016-10-26 05:27] LABS: Basophils % 0.7 %; Eosinophils # 0.1 K/mcL (0.0-0.6); Eosinophils % 2.6 %; Hematocrit 28.2 % (37.5-50.1); Hemoglobin 8.9 g/dL (12.9-16.9); Immature Granulocytes % 6.6 % (0-4); Lymphocytes # 1.6 K/mcL (0.6-4.6); Lymphocytes % 30.1 %; Mean Corpuscular HGB Conc 31.6 g/dL (31.6-35.5); Mean Corpuscular Hemoglobin 27.1 pg (28.0-33.3); Monocytes # 0.6 K/mcL (0.0-1.3); Monocytes % 10.3 %; Neutrophils # 2.7 K/mcL (1.6-8.9); Platelet Count 332 K/mcL (140-400); Red Blood Count 3.28 M/mcL (4.19-5.50); Red Cell Distribution Width 17.2 % (11.5-14.5); Segmented Neutrophils % 49.7 %
[2016-10-26 05:28] LABS: INR 2.1; Prothrombin Time 23.3 Seconds (9.4-12.1)
[2016-10-26 05:40] LABS: Calcium 8.3 mg/dL (8.6-10.8); Potassium 4.7 mEq/L (3.5-4.5)
[2016-10-26] MEDS: Acetaminophen 325 MG TABLET PO SCH ×3 (05:53→15:34)
[2016-10-26] MEDS: Celecoxib 200 MG CAPSULE PO SCH ×2 (09:05→20:59)
[2016-10-26] MEDS: MethylPREDNISolone 4 MG TABLET PO SCH ×2 (09:05→21:00)
[2016-10-26] MEDS: Ondansetron ODT 4 MG TAB.RAPDIS SL PRN ×2 (09:06→15:34)
[2016-10-26] MEDS: Spironolactone 25 MG TABLET PO SCH (09:07)
[2016-10-26] MEDS: Ascorbic Acid 500 MG TABLET PO SCH (09:13)
[2016-10-26] MEDS ORDERED: Metoclopramide 10 MG/2 ML VIAL IVP PRN (15:50)
[2016-10-26] MEDS: *HR* Warfarin 2 MG TABLET PO SCH (18:21)
[2016-10-26] MEDS: MOM Conc 10 ML UD.LIQ PO SCH (21:00)
[2016-10-26] MEDS: Sennosides 8.6 MG TABLET PO SCH (21:00)
[2016-10-26] MEDS: *HR* LORazepam 1 MG TABLET PO PRN (21:02)
[2016-10-27] MEDS: Acetaminophen 325 MG TABLET PO SCH ×3 (01:00→17:17)
[2016-10-27] MEDS: Ascorbic Acid 500 MG TABLET PO SCH (08:19)
[2016-10-27] MEDS: Sennosides 8.6 MG TABLET PO SCH ×2 (08:19→21:13)
[2016-10-27] MEDS: Spironolactone 25 MG TABLET PO SCH (08:20)
[2016-10-27] MEDS: MethylPREDNISolone 4 MG TABLET PO SCH ×2 (08:21→21:12)
[2016-10-27] MEDS: Ondansetron ODT 4 MG TAB.RAPDIS SL PRN (08:21)
[2016-10-27] MEDS: Celecoxib 200 MG CAPSULE PO SCH ×2 (08:21→21:11)
--- NOTE | 2016-10-27 15:26 | Internal Med Progress Note ---
Date of Encounter: 10/27/16 Time of Encounter: 15:24 - Assessment and plan (1) HTN (hypertension) Current Visit: No Status: Acute Assessment and plan: Blood pressure well controlled Qualifiers: Hypertension type: essential hypertension Qualified Code(s): I10 - Essential (primary) hypertension (2) History of lumbar laminectomy for spinal cord decompression Current Visit: Yes Status: Acute Assessment and plan: patient was here for. This is the third surgery. (3) Hx of decompressive lumbar laminectomy Current Visit: Yes Status: Acute (4) CKD (chronic kidney disease) Current Visit: No Status: Acute Assessment and plan: This is noted no significant change Qualifiers: Chronic kidney disease stage: stage 3 (moderate) Qualified Code(s): N18.3 - Chronic kidney disease, stage 3 (moderate) - Subjective Interval history: Patient still has problems of constipation. He is being discharged tomorrow. We will try fleets enema this evening. - Constitutional Vitals: Temp Pulse Resp BP Pulse Ox 98.1 F 100 16 130/76 97 10/27/16 07:00 10/27/16 07:00 10/27/16 07:00 10/27/16 07:00 10/27/16 07:00 General appearance: Present: A&O X 3, pleasant, no acute distress - Head Head exam: Present: atraumatic, normal inspection, normocephalic - Neck Neck exam general surgery: Present: supple, trachea midline. Absent: lymphadenopathy - Respiratory Respiratory exam: Present: CTAB. Absent: accessory muscle use, rales, rhonchi, wheezes - Cardiovascular Cardiovascular exam: Present: RRR, +S1, +S2. Absent: diastolic murmur, gallop, rubs, systolic murmur Internal Medicine: Result - Labs CBC & Chem 7: 10/26/16 04:55 10/26/16 04:55 Labs: Chronic renal failure labs otherwise stable - ABG Interpretation ABG results: PT/INR, D-dimer PT 23.3 Seconds (9.4-12.1) H 10/26/16 04:55 Consult Discharge Plan - Plan Referrals: dr. dea [Other] - 11/09/16 11:30 am (pt to have labs drawn 1 week prior to appointment as done in the past) Louis Rosas MD [Primary Care Provider] - 11/02/16 8:20 am (fax labs to dr rosas at [facility] [phone]) Zafar Rodriguez [Non-Partnered Physician] - 11/06/16 10:45 am (appointment at [address] [place] [address], [place] [address])
[2016-10-27] MEDS: *HR* Warfarin 2 MG TABLET PO SCH (17:17)
[2016-10-27] MEDS: MOM Conc 10 ML UD.LIQ PO SCH (21:12)
[2016-10-27] MEDS: *HR* LORazepam 1 MG TABLET PO PRN (21:14)
[2016-10-28] MEDS: Acetaminophen 325 MG TABLET PO SCH ×2 (01:00→08:51)
[2016-10-28 06:23] LABS: INR 3.1; Prothrombin Time 34.3 Seconds (9.4-12.1)
[2016-10-28 07:03] VITALS: BP 132/78
[2016-10-28] MEDS: Sennosides 8.6 MG TABLET PO SCH (08:50)
[2016-10-28] MEDS: Spironolactone 25 MG TABLET PO SCH (08:51)
[2016-10-28] MEDS: MethylPREDNISolone 4 MG TABLET PO SCH (08:51)
[2016-10-28] MEDS: Ascorbic Acid 500 MG TABLET PO SCH (08:52)
[2016-10-28] MEDS: Celecoxib 200 MG CAPSULE PO SCH (08:52)
--- NOTE | 2016-10-28 11:45 | Discharge Summary ---
Date of Encounter: 10/28/16 Time of Encounter: 11:43 - Discharge Diagnosis (1) HTN (hypertension) Priority: Secondary Status: Acute Comments: Blood pressures been well controlled Qualifiers: Hypertension type: essential hypertension Qualified Code(s): I10 - Essential (primary) hypertension (2) History of lumbar laminectomy for spinal cord decompression Priority: Primary Status: Acute Comments: Incisions clean and dry patient is progressing and ambulating in the leonard with his walker (3) Hx of decompressive lumbar laminectomy Priority: Primary Status: Acute (4) CKD (chronic kidney disease) Priority: Secondary Status: Acute Qualifiers: Chronic kidney disease stage: stage 3 (moderate) Qualified Code(s): N18.3 - Chronic kidney disease, stage 3 (moderate) - Discharge Medications Home Medications: Acetaminophen [Tylenol] 975 mg PO Q8HR 10/14/16 [History] Ascorbic Acid [C-1000] 1,000 mg PO DAILY 10/14/16 [History] Calcitriol [Rocaltrol] 0.25 mcg PO HS 10/14/16 [History] Celecoxib [Celebrex] 100 mg PO BID 10/14/16 [History] Cyclobenzaprine [Flexeril] 10 mg PO TID PRN 10/14/16 [History] Ferrous Sulfate [Iron] 325 mg PO BID 10/14/16 [History] HydrALAZINE 50 mg PO BID 10/14/16 [History] Hydroxychloroquine [Plaquenuil] 200 mg PO BID 10/14/16 [History] LORazepam [Ativan] 1 mg PO TID PRN 10/14/16 [History] Losartan [Cozaar] 25 mg PO DAILY 10/14/16 [History] MethylPREDNISolone [Medrol] 4 mg PO BID 10/14/16 [History] Metoprolol XL (24 HR) Succ [Toprol XL] 25 mg PO HS 10/14/16 [History] OxyCODONE Immed Rel [Roxicodone 5 MG] 5 mg PO Q4H PRN 10/14/16 [History] Paroxetine HCl [Paxil] 20 mg PO DAILY 10/14/16 [History] Quetiapine Fumarate [SEROquel] 12.5 mg PO HS 10/14/16 [History] Sennosides/Docusate Sodium [Senna-S Tablet] 1 tab PO HS 10/14/16 [History] Sodium Bicarbonate 650 mg PO BID 10/14/16 [History] Spironolact/Hydrochlorothiazid [Aldactazide 25-25 Tablet] 1 each PO DAILY [History] Warfarin [Coumadin] 4 mg PO 1800 10/14/16 [History] Zolpidem [Ambien] 5 mg PO HS PRN 10/14/16 [History] Allergies/Adverse Reactions: Allergies carvedilol [From Coreg] Allergy (Verified 10/14/16 20:57) Gastrointestinal Upset diphenhydramine [From Benadryl] Allergy (Verified 10/14/16 20:57) Chills Procedures/tests Complete & Pending: Procedures Performed prior 72 hours Category Date Time Status CT head/brain wo con [CT] Stat Cat Scan 10/25/16 17:36 Completed Date of admission: 10/14/16 19:34 Primary care physician: Louis Rosas MD Consults: 10/14/16 21:24 Consult to Occupational Therapy [CONS] Routine Comment: EVAL/TX Consult to Physical Therapy [CONS] Routine Comment: EVAL/TX Consult to Recreational Therapy [CONS] Routine Comment: Consult to Heater Helper [CONS] Routine Reason for SW Consult: D/C PLANNING 10/26/16 12:59 Consult to Wound Care [CONS] Routine Reason for Consult: wounds on rt ar and rt leg Time Notified: 13:00 Call Completed: Yes Discharging clinician: Abilio Wharton Anticipated date of discharge: 10/28/16 - Patient Status Disposition: Home Health Service Condition: Good Functional capacity at discharge: uses cane/walker Overall status at discharge: patient is progressing back to baseline - Discharge Instructions Instructions: Warfarin (By mouth) Follow Up With: dr. dea [Other] - 11/09/16 11:30 am (pt to have labs drawn 1 week prior to appointment as done in the past) Louis Rosas MD [Primary Care Provider] - 11/02/16 8:20 am (fax labs to dr rosas at [facility]. [phone]) Zafar Rodriguez [Non-Partnered Physician] - 11/06/16 10:45 am (appointment at [address] [place] [address], [place] [id number]) - Diet and Activity Activity: ambulate only with your walker Diet: advance to your usual diet Interval History: She came postoperatively after an extensive decompression laminectomy. Hospital course: Mr. Hunt is a 66 year old male is done well is ambulating in the leonard with his walker be discharged home accompanied was found today with home health. - Time Spent with Patient Total time spent providing and/or coordinating discharge services: Less than 30 minutes - Constitutional Vitals: Temp Pulse Resp BP Pulse Ox 97.8 F 90 18 132/78 96 10/28/16 07:02 10/28/16 07:02 10/28/16 07:02 10/28/16 07:02 10/28/16 07:02 General appearance: Present: A&O X 3, pleasant, no acute distress - Head Head exam: Present: atraumatic, normal inspection, normocephalic - Neck Neck exam general surgery: Present: supple, trachea midline. Absent: lymphadenopathy - Respiratory Respiratory exam: Present: CTAB. Absent: accessory muscle use, rales, rhonchi, wheezes - Cardiovascular Cardiovascular exam: Present: RRR, +S1, +S2. Absent: diastolic murmur, gallop, rubs, systolic murmur
--- NOTE | 2016-10-28 11:48 | Physician Discharge Referral ---
Home Health/Hosp Referral Info Provider in Charge Post Discharge: PCP - Diagnosis (1) HTN (hypertension) Priority: Secondary Status: Acute (2) History of lumbar laminectomy for spinal cord decompression Priority: Primary Status: Acute (3) Hx of decompressive lumbar laminectomy Priority: Primary Status: Acute (4) CKD (chronic kidney disease) Priority: Secondary Status: Acute - Respiratory Orders Smoking Cessation: Smoking cessation has been advised. For more information, call the [place] Tobacco Quit Line at 1-983-YBYE-NOW. - Diet/Nutrition Diet/Nutrition Orders: No Concentrated Sweets - Activity Activity Orders: Walker - Services Needed Following services are medically necessary services: Nursing, Physical Therapy, Occupational Therapy - Transfer Medications Home Medications: Acetaminophen [Tylenol] 975 mg PO Q8HR 10/14/16 [History] Ascorbic Acid [C-1000] 1,000 mg PO DAILY 10/14/16 [History] Calcitriol [Rocaltrol] 0.25 mcg PO HS 10/14/16 [History] Celecoxib [Celebrex] 100 mg PO BID 10/14/16 [History] Cyclobenzaprine [Flexeril] 10 mg PO TID PRN 10/14/16 [History] Ferrous Sulfate [Iron] 325 mg PO BID 10/14/16 [History] HydrALAZINE 50 mg PO BID 10/14/16 [History] Hydroxychloroquine [Plaquenuil] 200 mg PO BID 10/14/16 [History] LORazepam [Ativan] 1 mg PO TID PRN 10/14/16 [History] Losartan [Cozaar] 25 mg PO DAILY 10/14/16 [History] MethylPREDNISolone [Medrol] 4 mg PO BID 10/14/16 [History] Metoprolol XL (24 HR) Succ [Toprol XL] 25 mg PO HS 10/14/16 [History] OxyCODONE Immed Rel [Roxicodone 5 MG] 5 mg PO Q4H PRN 10/14/16 [History] Paroxetine HCl [Paxil] 20 mg PO DAILY 10/14/16 [History] Quetiapine Fumarate [SEROquel] 12.5 mg PO HS 10/14/16 [History] Sennosides/Docusate Sodium [Senna-S Tablet] 1 tab PO HS 10/14/16 [History] Sodium Bicarbonate 650 mg PO BID 10/14/16 [History] Spironolact/Hydrochlorothiazid [Aldactazide 25-25 Tablet] 1 each PO DAILY [History] Warfarin [Coumadin] 4 mg PO 1800 10/14/16 [History] Zolpidem [Ambien] 5 mg PO HS PRN 10/14/16 [History] Allergies/Adverse Reactions: Allergies carvedilol [From Coreg] Allergy (Verified 10/14/16 20:57) Gastrointestinal Upset diphenhydramine [From Benadryl] Allergy (Verified 10/14/16 20:57) Chills Certification: Further, I certify that my clinical findings support that this patient is homebound (i.e. absences from home require considerable and taxing effort and are for medical reasons or episcopal services or infrequently or short duration when for other reasons) because: Homebound Reason: Patient requires assistance of a person or device to safely leave home Attestation: My signature below is to certify that this patient is under my care and that I, or nurse practitioner, or a physician's outpatient physical therapist assistant working with me, has a face-to -face encounter with this patient.
== END 2016-10-28 14:18 | disposition home health service (06) | DRG 950 ==
LOC: INPGRE 10-14 19:34
PROVIDERS: ADMIT Internal Medicine; ATTEND Internal Medicine

== ENCOUNTER 2017-06-17 15:08 | Inpatient (IN) ==
[2017-06-18] MEDS ORDERED: *HR* OxyCODONE Immed Rel 5 MG TABLET PO PRN (02:44)
[2017-06-18 07:50] LABS: Basophils % 0.1 %; Eosinophils # 0.3 K/mcL (0.0-0.6); Eosinophils % 2.9 %; Hematocrit 23.6 % (37.5-50.1); Hemoglobin 7.7 g/dL (12.9-16.9); Immature Granulocytes % 7.9 % (0-4); Lymphocytes # 1.1 K/mcL (0.6-4.6); Lymphocytes % 11.4 %; Mean Corpuscular HGB Conc 32.6 g/dL (31.6-35.5); Mean Corpuscular Hemoglobin 29.3 pg (28.0-33.3); Mean Corpuscular Volume 89.7 fL (83.0-100.0); Mean Platelet Volume 11.3 fL (9.4-12.4); Monocytes # 0.7 K/mcL (0.0-1.3); Monocytes % 7.2 %; Neutrophils # 6.7 K/mcL (1.6-8.9); Red Blood Count 2.63 M/mcL (4.19-5.50); Red Cell Distribution Width 16.1 % (11.5-14.5); Segmented Neutrophils % 70.5 %
[2017-06-18 07:54] LABS: Platelet Count 323 K/mcL (140-400)
[2017-06-18 08:06] LABS: BUN/Creatinine Ratio 22 (6-26); Blood Urea Nitrogen 32 mg/dL (8-26); Carbon Dioxide 25 mEq/L (19-29); Chloride 105 mEq/L (98-109); Glucose 89 mg/dL (70-99); Osmolality,Calculated 290 (280-300); Potassium 3.9 mEq/L (3.5-4.5); Sodium 137 mEq/L (136-145); eGFR For African Americans > 60 (> 60); eGFR For Non-African Americans 50 (> 60)
[2017-06-18 08:16] LABS: Calcium 8.2 mg/dL (8.6-10.8)
[2017-06-18] MEDS ORDERED: Metoprolol XL (24 HR) Succ 25 MG TAB.ER.24H PO SCH (09:00)
[2017-06-18 10:23] LABS: Activated Partial Thrombo Time 25.7 Seconds (26.0-36.0)
[2017-06-18] MEDS: Ascorbic Acid 500 MG TABLET PO SCH (10:39)
[2017-06-18] MEDS: methylPREDNISolone 4 MG TABLET PO SCH ×2 (10:39→21:22)
[2017-06-18] MEDS: Aspirin 81 MG TAB.CHEW PO SCH (10:39)
[2017-06-18] MEDS: Acetaminophen 325 MG TABLET PO PRN ×2 (10:51→17:04)
[2017-06-18] MEDS: Metoprolol XL (24 HR) Succ 50 MG TAB.ER.24H PO SCH (11:56)
--- NOTE | 2017-06-18 14:55 | Internal Med History&Physical ---
Date of Encounter: 06/18/17 Time of Encounter: 14:49 Assessment and Plan (1) HTN (hypertension) Current visit: No Status: Acute We will follow blood pressure Qualifiers: Hypertension type: essential hypertension Qualified Code(s): I10 - Essential (primary) hypertension (2) History of lumbar laminectomy for spinal cord decompression Current visit: No Status: Acute Patient decompression laminectomy and will make sure the incision is clean and dry and he is currently doing therapy (3) H/O spinal fusion Current visit: No Status: Acute Internal Medicine - H&P: HPI Chief complaint: Deconditioning secondary to a decompression laminectomy that was emergent. Admitted From: Hospital to Hospital Transfer Plans for Post Hospital Care: Home History of present illness: Mr. Hunt is a 66 year old apparently has severe osteoporosis. Because of the T11 compression fracture had severe kyphosis. And this apparently was impinging upon the cord he had to have a decompression laminectomy. He is quite deconditioned from that. Past Med Surg Social Fam HX - Past Medical History Medical history: arthritis, DVT, GERD, hyperlipidemia, hypertension, kidney stones, renal disease, other Psychiatric history: anxiety - Past Surgical History Surgical History: other - Social History Smoking Status: Unknown if ever smoked Smokeless Tobacco Status: No Alcohol use: none Drug use: none - Family History Mother History Unknown: Yes Father History Unknown: Yes Internal Medicine - H&P: Meds Acetaminophen [Tylenol] 650 mg PO Q6HR PRN 10/14/16 [History] Ascorbic Acid [C-1000] 1,000 mg PO DAILY 10/14/16 [History] Calcitriol [Rocaltrol] 0.25 mcg PO HS 10/14/16 [History] Cyclobenzaprine [Flexeril] 5 mg PO TID PRN 10/14/16 [History] Ferrous Sulfate [Iron] 325 mg PO BIDWM 10/14/16 [History] Hydroxychloroquine [Plaquenuil] 200 mg PO BID 10/14/16 [History] Metoprolol XL (24 HR) Succ [Toprol XL] 25 mg PO DAILY 10/14/16 [History] OxyCODONE Immed Rel [Roxicodone 5 MG] 5 mg PO Q4H PRN 10/14/16 [History] Paroxetine HCl [Paxil] 20 mg PO DAILY 10/14/16 [History] Sennosides/Docusate Sodium [Senna-S Tablet] 1 tab PO HS 10/14/16 [History] methylPREDNISolone [Medrol] 4 mg PO BID 10/14/16 [History] Aspirin 81 mg PO DAILY 06/18/17 [History] Pantoprazole Sodium [Protonix] 40 mg PO DAILY 06/18/17 [History] 3 Allergy/AdvReac Type Severity Reaction Status Date / Time carvedilol [From Coreg] Allergy Gastrointestinal Verified 06/18/17 01:17 Upset diphenhydramine Allergy Chills Verified 06/18/17 01:17 [From Benadryl] All Systems PM: A 10-system review of systems was performed and is negative for pertinent findings except as documented above in the HPI. - Constitutional Constitutional: no anorexia, no chills, no excessive sweating, no fatigue, no fever(s), no falls, no lethargy, no malaise, no night sweats, no weakness, no weight gain, no weight loss - EENT Eyes: no blurry vision, no change in vision, no decreased night vision, no diplopia, no discharge, no dry eye, no floaters, no irritation, no itchy eyes, no loss of vision, no pain, no photophobia, no seeing flashes, no spots in vision, no tunnel vision, no other visual disturbances Ears: no decreased hearing, no ear discharge, no ear pain, no tinnitus Nose, mouth and throat: no bleeding gums, no change in voice, no dental pain, no dry mouth, no dysphagia, no epistaxis, no facial pain, no hoarseness, no lip swelling, no mouth lesions, no mouth pain, no nasal congestion, no nasal discharge, no nasal obstruction, no neck mass, no neck pain, no nose pain, no odynophagia, no post-nasal drip, no sinus pain, no sinus pressure, no sore throat, no throat swelling, no tongue swelling - Breasts Breasts: no change in shape, no mass Additional comments: NMA - Cardiovascular Cardiovascular ROS IM: no as per HPI, no claudication, no diaphoresis, no dyspnea, no dyspnea on exertion, no edema, no irregular heart rhythm, no lightheadedness, no orthopnea, no palpitations, no paroxysmal nocturnal dyspnea , no syncope - Respiratory Respiratory: no cough, no dyspnea on exertion, no wheezing, no snoring, no stridor, no pain on inspiration, no chest congestion, no excessive phlegm production, no change in phlegm color, no pain with cough - Gastrointestinal Gastrointestinal: no abdominal pain, no belching, no bloating, no change in bowel habits, no change in stool character, no coffee ground emesis, no constipation, no cramping, no diarrhea, no dyspepsia, no dysphagia, no early satiety, no excessive flatus, no fecal incontinence, no heartburn, no hematemesis, no hematochezia, no loose stools, no melena, no nausea, no odynophagia, no tenesmus, no vomiting - Genitourinary Genitourinary ROS male: no difficulty urinating, no dysuria, no flank pain, no genital lesions, no genital pain, no hematuria, no nocturia, no penile discharge , no post void dribbling, no scrotal swelling, no testicular mass, no testicular pain, no urinary frequency, no urinary hesitancy, no urinary incontinence, no urinary urgency - Musculoskeletal Musculoskeletal ROS IM: joint swelling, limited range of motion, no arthralgias , no muscle cramps, no muscle weakness, no neck pain, no numbness - Integumentary Integumentary IM: skin ulcer, sores, no as per HPI, no erythema, no new lesions , no non-healing lesions, no pruritus, no rash, no unusual bruising, no jaundice - Neurological Neurological ROS: weakness, no abnormal gait, no abnormal hearing, no abnormal movements, no abnormal speech, no behavioral changes, no burning sensations, no convulsions, no disequilibrium, no dizziness, no focal weakness, no frequent falls, no lack of coordination, no loss of vision, no memory loss, no numbness, no paresthesias, no radicular pain, no restless legs, no tingling, no tremor(s) , no vertigo, no other visual disturbances - Psychiatric Psychiatric: no abnormal sleep pattern, no anhedonia, no anxiety, no auditory hallucinations, no behavioral changes, no change in appetite, no change in libido, no confusion, no depression, no hallucinations, no homicidal ideation, no hopelessness, no irritability, no memory loss, no mood swings, no panic attacks, no paranoia, no suicidal ideation, no visual hallucinations, no tactile - Endocrine Endocrine IM: no cold intolerance, no deeping of the voice, no excessive sweating, no fatigue, no flushing, no heat intolerance, no polydipsia, no polyphagia - Hematologic/Lymphatic Hematologic/Lymphatic: no easy bleeding, no easy bruising, no lymphadenopathy - Allergic/Immunologic Allergic/Immunologic: no tongue swelling, no throat swelling, no itchy eyes, no seasonal rhinorrhea, no uticaria, no wheezing, no GI upset with certain foods, no lip swelling - Constitutional Vitals: Temp Pulse Resp BP Pulse Ox 97.6 F 136 20 130/82 93 06/18/17 07:44 06/18/17 12:22 06/18/17 12:22 06/18/17 12:22 06/18/17 12:22 - Head Head exam: Present: atraumatic, normal inspection, normocephalic - Neck Neck exam general surgery: Present: supple, trachea midline. Absent: lymphadenopathy - Respiratory Respiratory exam: Present: CTAB. Absent: accessory muscle use, rales, rhonchi, wheezes - Cardiovascular Cardiovascular exam: Present: RRR, +S1, +S2. Absent: diastolic murmur, gallop, rubs, systolic murmur - GI/Abdominal GI/Abdominal exam: Present: normal bowel sounds, soft, no peritoneal signs. Absent: distended, tenderness Internal Med - H&P Results - Labs CBC & Chem 7: 06/18/17 07:40 06/18/17 07:40 Labs: Short CBC 06/18/17 Range/Units 07:40 WBC 9.5 (4.3-11.1) K/mcL Hgb 7.7 L (12.9-16.9) g/dL Hct 23.6 L (37.5-50.1) % Plt Count 323 (140-400) K/mcL Neutrophils # 6.7 (1.6-8.9) K/mcL BMP 06/18/17 07:40 Sodium 137 Potassium 3.9 Chloride 105 Carbon Dioxide 25 BUN 32 H Creatinine 1.43 H Glucose 89 Calcium 8.2 L Lab is stable looks okay. watch hemoglobin
[2017-06-18] MEDS: Sennosides/Docusate Sodium TABLET PO SCH (21:22)
[2017-06-19] MEDS: Acetaminophen 325 MG TABLET PO PRN ×3 (00:04→15:23)
[2017-06-19] MEDS ORDERED: *HR* Enoxaparin 40 MG/0.4 ML SYRINGE SQ SCH (06:00)
[2017-06-19] MEDS: Ascorbic Acid 500 MG TABLET PO SCH (09:38)
[2017-06-19] MEDS: Aspirin 81 MG TAB.CHEW PO SCH (09:38)
[2017-06-19] MEDS: Metoprolol XL (24 HR) Succ 50 MG TAB.ER.24H PO SCH (09:38)
[2017-06-19] MEDS: methylPREDNISolone 4 MG TABLET PO SCH ×2 (09:38→23:01)
--- NOTE | 2017-06-19 16:53 | Internal Med Progress Note ---
Date of Encounter: 06/19/17 Time of Encounter: 17:31 - Assessment and plan (1) HTN (hypertension) Current Visit: No Status: Acute Assessment and plan: - stable, continue home meds Qualifiers: Hypertension type: essential hypertension Qualified Code(s): I10 - Essential (primary) hypertension (2) History of lumbar laminectomy for spinal cord decompression Current Visit: No Status: Acute Assessment and plan: stable, continue PT/ot (3) Hx of decompressive lumbar laminectomy Current Visit: No Status: Acute Assessment and plan: stable, continue PT/ot (4) CKD (chronic kidney disease) Current Visit: No Status: Acute Assessment and plan: secondary to lupus - stable now - avoidance of nephrotoxic medications, pt adament about using celecoxib - pt understands the risk of NSAIDS on his kidneys and would like for celecoxib to be started Qualifiers: Chronic kidney disease stage: stage 3 (moderate) Qualified Code(s): N18.3 - Chronic kidney disease, stage 3 (moderate) (5) H/O spinal fusion Current Visit: No Status: Acute (6) PUD (peptic ulcer disease) Current Visit: No Status: Chronic (7) Cephalgia Current Visit: No Status: Chronic Qualifiers: Headache type: tension-type Headache chronicity pattern: chronic headache Intractability: not intractable Qualified Code(s): G44.229 - Chronic tension -type headache, not intractable (8) Great toe amputation status Current Visit: Yes Status: Acute Assessment and plan: continue PT/OT Qualifiers: Laterality: left Qualified Code(s): Z89.412 - Acquired absence of left great toe - Constitutional Vitals: Temp Pulse Resp BP Pulse Ox 98.1 F 95 18 124/76 95 06/19/17 07:00 06/19/17 07:00 06/19/17 07:00 06/19/17 07:00 06/19/17 07:00 General appearance: Present: A&O X 3 - Head Head exam: Present: atraumatic, normal inspection - Respiratory Respiratory exam: Present: CTAB. Absent: rhonchi, stridor, wheezes, tachypnea - Cardiovascular Cardiovascular exam: Present: RRR, +S1, +S2. Absent: bradycardia, JVD - Extremities Exam Additional comments: right lower extremity 4+/5 Left lower extremity 5/5 Right upper 4/5 Left upper 3/5 - Neurological Exam Neurological exam: Present: CN II-XII intact. Absent: speech deficit - Expanded Neurological Exam Speech: Absent: anomia, expressive aphasia Cerebellar function: finger to nose: Normal DTR: bicep (L): 0, bicep (R): 0, brachioradialis (L): 0, brachioradialis (R): 0 , patellar (L): 0, patellar (R): 0, tricep (L): 0, tricep (R): 0 Internal Medicine: Result - Labs CBC & Chem 7: 06/18/17 07:40 06/18/17 07:40 - ABG Interpretation ABG results: PT/INR, D-dimer PT 11.0 Seconds (9.4-12.1) 06/18/17 09:40 Consult Discharge Plan - Plan Referrals: Louis Farrar MD [Primary Care Provider] -
[2017-06-19] MEDS: Celecoxib 100 MG CAPSULE PO PRN (18:07)
[2017-06-19] MEDS ORDERED: *HR* Warfarin 1 MG TABLET PO SCH (21:00)
[2017-06-19] MEDS ORDERED: Warfarin perPT PO PRN (21:16)
[2017-06-19] MEDS: *HR* LORazepam 0.5 MG TABLET PO SCH (23:01)
[2017-06-19] MEDS: Sennosides/Docusate Sodium TABLET PO SCH (23:03)
[2017-06-19] MEDS: *HR* Enoxaparin 80 MG/0.8 ML SYRINGE SQ SCH (23:03)
[2017-06-20] MEDS: methylPREDNISolone 4 MG TABLET PO SCH ×2 (08:32→20:31)
[2017-06-20] MEDS: Metoprolol XL (24 HR) Succ 50 MG TAB.ER.24H PO SCH (08:32)
[2017-06-20] MEDS: Ascorbic Acid 500 MG TABLET PO SCH ×2 (08:32→17:23)
[2017-06-20] MEDS: *HR* Enoxaparin 80 MG/0.8 ML SYRINGE SQ SCH ×2 (08:32→20:31)
[2017-06-20] MEDS: Aspirin 81 MG TAB.CHEW PO SCH (08:32)
[2017-06-20] MEDS: Acetaminophen 325 MG TABLET PO PRN ×3 (08:38→20:28)
[2017-06-20] MEDS: Celecoxib 100 MG CAPSULE PO PRN ×2 (15:13→20:26)
--- NOTE | 2017-06-20 16:18 | Internal Med Progress Note ---
Date of Encounter: 06/20/17 Time of Encounter: 16:14 - Assessment and plan (1) HTN (hypertension) Current Visit: No Status: Acute Assessment and plan: - stable, continue home meds Qualifiers: Hypertension type: essential hypertension Qualified Code(s): I10 - Essential (primary) hypertension (2) History of lumbar laminectomy for spinal cord decompression Current Visit: No Status: Acute Assessment and plan: stable, continue PT/ot (3) Hx of decompressive lumbar laminectomy Current Visit: No Status: Acute Assessment and plan: stable, continue PT/ot (4) CKD (chronic kidney disease) Current Visit: No Status: Acute Assessment and plan: secondary to lupus - stable now - avoidance of nephrotoxic medications, pt adament about using celecoxib - pt understands the risk of NSAIDS on his kidneys and would like for celecoxib to be started Qualifiers: Chronic kidney disease stage: stage 3 (moderate) Qualified Code(s): N18.3 - Chronic kidney disease, stage 3 (moderate) (5) H/O spinal fusion Current Visit: No Status: Acute (6) PUD (peptic ulcer disease) Current Visit: No Status: Chronic (7) Cephalgia Current Visit: No Status: Chronic Qualifiers: Headache type: tension-type Headache chronicity pattern: chronic headache Intractability: not intractable Qualified Code(s): G44.229 - Chronic tension -type headache, not intractable (8) Great toe amputation status Current Visit: Yes Status: Acute Assessment and plan: continue PT/OT Qualifiers: Laterality: left Qualified Code(s): Z89.412 - Acquired absence of left great toe - Time Spent With Patient 25 - 35 minutes - Subjective Interval history: No complaints today - Constitutional Vitals: Temp Pulse Resp BP Pulse Ox 98.1 F 90 15 132/87 96 06/20/17 07:33 06/20/17 07:33 06/20/17 07:33 06/20/17 07:33 06/20/17 07:33 General appearance: Present: A&O X 3 - Head Head exam: Present: atraumatic, normocephalic - Neck Neck exam general surgery: Present: supple, trachea midline. Absent: lymphadenopathy - Cardiovascular Cardiovascular exam: Present: RRR, +S1, +S2. Absent: diastolic murmur, gallop, rubs, systolic murmur - GI/Abdominal GI/Abdominal exam: Present: normal bowel sounds, soft, no peritoneal signs. Absent: distended, tenderness - Extremities Exam Additional comments: chronic changes on the skin of both bilateral upper and lower extremities right lower extremity 4+/5 Left lower extremity 5/5 right upper 4/5 left upper 3/5 - Neurological Exam Neurological exam: Present: CN II-XII intact, oriented X3, no focal deficits. Absent: pronater drift, facial droop, speech deficit Internal Medicine: Result - Labs CBC & Chem 7: 06/18/17 07:40 06/18/17 07:40 - ABG Interpretation ABG results: PT/INR, D-dimer PT 11.0 Seconds (9.4-12.1) 06/18/17 09:40 Consult Discharge Plan - Plan Referrals: Louis Farrar MD [Primary Care Provider] -
[2017-06-20] MEDS: Sennosides/Docusate Sodium TABLET PO SCH (20:25)
[2017-06-20] MEDS: *HR* LORazepam 0.5 MG TABLET PO SCH (20:30)
[2017-06-20] MEDS ORDERED: *HR* Warfarin 1 MG TABLET PO SCH (21:00)
[2017-06-20] MEDS ORDERED: *HR* Warfarin 2 MG TABLET PO ONE (23:00)
[2017-06-21] MEDS: Acetaminophen 325 MG TABLET PO PRN ×3 (03:58→21:01)
[2017-06-21 05:32] LABS: Basophils % 0.1 %; Eosinophils # 0.1 K/mcL (0.0-0.6); Eosinophils % 1.2 %; Hematocrit 22.3 % (37.5-50.1); Immature Granulocytes % 2.3 % (0-4); Lymphocytes # 1.1 K/mcL (0.6-4.6); Lymphocytes % 9.7 %; Mean Corpuscular HGB Conc 31.4 g/dL (31.6-35.5); Mean Corpuscular Volume 92.5 fL (83.0-100.0); Mean Platelet Volume 9.8 fL (9.4-12.4); Monocytes # 0.8 K/mcL (0.0-1.3); Monocytes % 6.9 %; Neutrophils # 8.7 K/mcL (1.6-8.9); Platelet Count 346 K/mcL (140-400); Red Blood Count 2.41 M/mcL (4.19-5.50); Red Cell Distribution Width 17.1 % (11.5-14.5); Segmented Neutrophils % 79.8 %
[2017-06-21 05:46] LABS: INR 1.1; Prothrombin Time 11.8 Seconds (9.4-12.1)
[2017-06-21 05:48] LABS: BUN/Creatinine Ratio 27 (6-26); Blood Urea Nitrogen 35 mg/dL (8-26); Calcium 8.1 mg/dL (8.6-10.8); Carbon Dioxide 22 mEq/L (19-29); Chloride 110 mEq/L (98-109); Glucose 106 mg/dL (70-99); Osmolality,Calculated 294 (280-300); Potassium 4.3 mEq/L (3.5-4.5); Sodium 138 mEq/L (136-145); eGFR For African Americans > 60 (> 60); eGFR For Non-African Americans 55 (> 60)
[2017-06-21] MEDS: methylPREDNISolone 4 MG TABLET PO SCH ×2 (09:07→20:58)
[2017-06-21] MEDS: Metoprolol XL (24 HR) Succ 50 MG TAB.ER.24H PO SCH (09:07)
[2017-06-21] MEDS: *HR* Enoxaparin 80 MG/0.8 ML SYRINGE SQ SCH ×2 (09:07→21:04)
[2017-06-21] MEDS: Aspirin 81 MG TAB.CHEW PO SCH (09:07)
[2017-06-21] MEDS: Ascorbic Acid 500 MG TABLET PO SCH (09:29)
[2017-06-21] MEDS: Celecoxib 100 MG CAPSULE PO PRN (09:29)
--- NOTE | 2017-06-21 16:24 | Discharge Summary ---
Date of Encounter: 06/30/17 Time of Encounter: 16:21 - Discharge Diagnosis (1) HTN (hypertension) Priority: Secondary Status: Chronic Qualifiers: Hypertension type: essential hypertension Qualified Code(s): I10 - Essential (primary) hypertension (2) History of lumbar laminectomy for spinal cord decompression Priority: Primary Status: Acute (3) H/O spinal fusion Priority: Primary Status: Acute - Discharge Medications Home Medications: Acetaminophen [Tylenol] 650 mg PO Q6HR PRN 10/14/16 [History] Ascorbic Acid [C-1000] 1,000 mg PO DAILY 10/14/16 [History] Calcitriol [Rocaltrol] 0.25 mcg PO HS 10/14/16 [History] Cyclobenzaprine [Flexeril] 5 mg PO TID PRN 10/14/16 [History] Ferrous Sulfate [Iron] 325 mg PO BIDWM 10/14/16 [History] Hydroxychloroquine [Plaquenuil] 200 mg PO BID 10/14/16 [History] Metoprolol XL (24 HR) Succ [Toprol XL] 25 mg PO DAILY 10/14/16 [History] OxyCODONE Immed Rel [Roxicodone 5 MG] 5 mg PO Q4H PRN 10/14/16 [History] Paroxetine HCl [Paxil] 20 mg PO DAILY 10/14/16 [History] Sennosides/Docusate Sodium [Senna-S Tablet] 1 tab PO HS 10/14/16 [History] methylPREDNISolone [Medrol] 4 mg PO BID 10/14/16 [History] Aspirin 81 mg PO DAILY 06/18/17 [History] Pantoprazole Sodium [Protonix] 40 mg PO DAILY 06/18/17 [History] Alendronate Sodium 70 mg PO QWEEK 06/26/17 [History] Celecoxib [Celebrex] 200 mg PO BID 06/26/17 [History] Clopidogrel [Plavix] 75 mg PO DAILY 06/26/17 [History] LORazepam [Ativan] 0.5 mg PO BID 06/26/17 [History] Warfarin [Coumadin] 2 mg PO AD 06/26/17 [History] Allergies/Adverse Reactions: 3 Allergy/AdvReac Type Severity Reaction Status Date / Time carvedilol [From Coreg] Allergy Gastrointestinal Verified 06/18/17 01:17 Upset diphenhydramine Allergy Chills Verified 06/18/17 01:17 [From Benadryl] Date of admission: 06/18/17 00:53 Primary care physician: Louis Farrar MD Consults: 06/18/17 02:40 Consult to Occupational Therapy [CONS] Routine Comment: eval / tx Reason for Consult: eval / tx Consult to Physical Therapy [CONS] Routine Comment: eval / tx Reason for Consult: eval / tx Consult to Recreational Therapy [CONS] Routine Comment: Consult to Assessment Director [CONS] Routine Reason for SW Consult: dc planning Discharging clinician: Abilio Wharton Anticipated date of discharge: 06/21/17 - Patient Status Disposition: Transfer Short-Term Hosp Condition: Fair Functional capacity at discharge: wheelchair bound Overall status at discharge: patient is not back to baseline - Discharge Instructions Follow Up With: Louis Farrar MD [Primary Care Provider] - - Diet and Activity Activity: as per physical therapy Diet: diabetic diet Interval History: Patient came here postop to increase strength for transfer to Center is having trouble with ambulation and wheelchair bound Hospital course: Mr. Hunt is a 66 year old male - Time Spent with Patient Total time spent providing and/or coordinating discharge services: Less than 30 minutes - Constitutional Vitals: Temp Pulse Resp BP Pulse Ox 97.0 F L 85 18 112/65 99 06/21/17 07:10 06/21/17 07:10 06/21/17 07:10 06/21/17 07:10 06/20/17 19:33 General appearance: Present: A&O X 3 - Head Head exam: Present: atraumatic, normal inspection, normocephalic - Neck Neck exam general surgery: Present: supple, trachea midline. Absent: lymphadenopathy - Respiratory Respiratory exam: Present: CTAB. Absent: accessory muscle use, rales, rhonchi, wheezes - Cardiovascular Cardiovascular exam: Present: RRR, +S1, +S2. Absent: diastolic murmur, gallop, rubs, systolic murmur - GI/Abdominal GI/Abdominal exam: Present: normal bowel sounds, soft, no peritoneal signs. Absent: distended, tenderness
--- NOTE | 2017-06-21 16:27 | Internal Med Progress Note ---
Date of Encounter: 06/21/17 Time of Encounter: 16:25 - Assessment and plan (1) HTN (hypertension) Current Visit: No Status: Acute Assessment and plan: We will follow Qualifiers: Hypertension type: essential hypertension Qualified Code(s): I10 - Essential (primary) hypertension (2) History of lumbar laminectomy for spinal cord decompression Current Visit: No Status: Acute Assessment and plan: This history is positive for cord compression and postlaminectomy (3) H/O spinal fusion Current Visit: No Status: Acute Assessment and plan: Bilateral fusion for the above-mentioned problem - Time Spent With Patient less than 15 minutes - Subjective Interval history: Ricardo Welch is here for rehabilitation to increase his upper body strength for transfers now that he is wheelchair bound currently unable to ambulate and do weightbearing. - Constitutional Vitals: Temp Pulse Resp BP Pulse Ox 97.0 F L 85 18 112/65 99 06/21/17 07:10 06/21/17 07:10 06/21/17 07:10 06/21/17 07:10 06/20/17 19:33 General appearance: Present: A&O X 3 - Head Head exam: Present: atraumatic, normal inspection, normocephalic - Neck Neck exam general surgery: Present: supple, trachea midline. Absent: lymphadenopathy - Respiratory Respiratory exam: Present: CTAB. Absent: accessory muscle use, rales, rhonchi, wheezes - Cardiovascular Cardiovascular exam: Present: RRR, +S1, +S2. Absent: diastolic murmur, gallop, rubs, systolic murmur Internal Medicine: Result - Labs CBC & Chem 7: 06/21/17 05:00 06/21/17 05:00 Labs: Short CBC 06/21/17 Range/Units 05:00 WBC 10.9 (4.3-11.1) K/mcL Hgb 7.0 L (12.9-16.9) g/dL Hct 22.3 L (37.5-50.1) % Plt Count 346 (140-400) K/mcL Neutrophils # 8.7 (1.6-8.9) K/mcL BMP 06/21/17 05:00 Sodium 138 Potassium 4.3 Chloride 110 H Carbon Dioxide 22 BUN 35 H Creatinine 1.32 H Glucose 106 H Calcium 8.1 L He is right at the Humberto for hemoglobin. Looks like a little chronic renal failure. I will follow the lab lab. - ABG Interpretation ABG results: PT/INR, D-dimer PT 11.8 Seconds (9.4-12.1) 06/21/17 05:00 - Impressions Impressions Hip X-Ray 06/21/17 13:29 IMPRESSION: No acute osseous injury of the right hip or significant arthropathy is appreciated. D/ / Alvin Hyde MD / Alvin Hyde MD Interpreting Provider: Alvin Hyde MD Consult Discharge Plan - Plan Referrals: Louis Farrar MD [Primary Care Provider] -
[2017-06-21] MEDS: *HR* OxyCODONE Immed Rel 5 MG TABLET PO PRN ×2 (17:30→22:43)
[2017-06-21] MEDS ORDERED: *HR* Warfarin 4 MG TABLET PO ONE (18:00)
[2017-06-21] MEDS: Sennosides/Docusate Sodium TABLET PO SCH (20:57)
[2017-06-21] MEDS: *HR* LORazepam 0.5 MG TABLET PO SCH (20:57)
[2017-06-21] MEDS: Celecoxib 200 MG CAPSULE PO SCH (20:59)
[2017-06-22] MEDS ORDERED: metroNIDAZOLE 500 MG TABLET PO SCH
[2017-06-22] MEDS: *HR* OxyCODONE Immed Rel 5 MG TABLET PO PRN ×3 (03:27→17:18)
[2017-06-22] MEDS: Acetaminophen 325 MG TABLET PO PRN ×2 (03:32→21:04)
[2017-06-22 07:53] LABS: INR 1.3; Prothrombin Time 14.2 Seconds (9.4-12.1)
[2017-06-22] MEDS: methylPREDNISolone 4 MG TABLET PO SCH ×2 (07:58→21:04)
[2017-06-22] MEDS: *HR* Enoxaparin 80 MG/0.8 ML SYRINGE SQ SCH ×2 (07:58→21:04)
[2017-06-22] MEDS: Metoprolol XL (24 HR) Succ 50 MG TAB.ER.24H PO SCH (07:58)
[2017-06-22] MEDS: Celecoxib 200 MG CAPSULE PO SCH ×2 (07:59→21:04)
[2017-06-22] MEDS: Aspirin 81 MG TAB.CHEW PO SCH (07:59)
[2017-06-22] MEDS: Ascorbic Acid 500 MG TABLET PO SCH (07:59)
[2017-06-22] MEDS: Ondansetron ODT 4 MG TAB.RAPDIS SL PRN (11:35)
--- NOTE | 2017-06-22 14:42 | Internal Med Progress Note ---
Date of Encounter: 06/22/17 Time of Encounter: 14:35 - Assessment and plan (1) HTN (hypertension) Current Visit: No Status: Acute Assessment and plan: Blood pressure is stable Qualifiers: Hypertension type: essential hypertension Qualified Code(s): I10 - Essential (primary) hypertension (2) History of lumbar laminectomy for spinal cord decompression Current Visit: No Status: Acute Assessment and plan: Patient's had a long history of back problems spinal cord compression due to severe osteoporosis and collapse of vertebral body upon nerve roots (3) H/O spinal fusion Current Visit: No Status: Acute Assessment and plan: Spinal fusion was done for the above reason - Time Spent With Patient less than 15 minutes - Subjective Interval history: Ricardo Welch is here for rehabilitation to increase his upper body strength for transfers now that he is wheelchair bound currently unable to ambulate and do weightbearing. - Constitutional Vitals: Temp Pulse Resp BP Pulse Ox 97.1 F L 85 17 127/75 93 06/22/17 07:33 06/22/17 07:33 06/22/17 07:33 06/22/17 07:33 06/22/17 07:33 General appearance: Present: A&O X 3 - Head Head exam: Present: atraumatic, normocephalic - Neck Neck exam general surgery: Present: supple, trachea midline. Absent: lymphadenopathy - Respiratory Respiratory exam: Present: CTAB. Absent: accessory muscle use, rales, rhonchi, wheezes - Cardiovascular Cardiovascular exam: Present: RRR, +S1, +S2. Absent: diastolic murmur, gallop, rubs, systolic murmur - GI/Abdominal GI/Abdominal exam: Present: normal bowel sounds, soft, no peritoneal signs. Absent: distended, tenderness Internal Medicine: Result - Labs CBC & Chem 7: 06/21/17 05:00 06/21/17 05:00 Labs: Jakob's labs stable tomorrow - ABG Interpretation ABG results: PT/INR, D-dimer PT 14.2 Seconds (9.4-12.1) H 06/22/17 07:42 - Impressions Impressions Hip X-Ray 06/21/17 13:29 IMPRESSION: No acute osseous injury of the right hip or significant arthropathy is appreciated. D/ / Alvin Hyde MD / Alvin Hyde MD Interpreting Provider: Alvin Hyde MD Consult Discharge Plan - Plan Referrals: Louis Farrar MD [Primary Care Provider] -
[2017-06-22] MEDS ORDERED: *HR* Warfarin 2 MG TABLET PO ONE (18:00)
[2017-06-22] MEDS: *HR* LORazepam 0.5 MG TABLET PO SCH (21:03)
[2017-06-22] MEDS: Sennosides/Docusate Sodium TABLET PO SCH (21:04)
[2017-06-23] MEDS: *HR* OxyCODONE Immed Rel 5 MG TABLET PO PRN ×4 (00:14→21:15)
[2017-06-23] MEDS: *HR* Enoxaparin 80 MG/0.8 ML SYRINGE SQ SCH ×2 (09:07→21:17)
[2017-06-23] MEDS: Ascorbic Acid 500 MG TABLET PO SCH (09:07)
[2017-06-23] MEDS: Aspirin 81 MG TAB.CHEW PO SCH (09:07)
[2017-06-23] MEDS: Metoprolol XL (24 HR) Succ 50 MG TAB.ER.24H PO SCH (09:07)
[2017-06-23] MEDS: methylPREDNISolone 4 MG TABLET PO SCH ×2 (09:07→21:15)
[2017-06-23] MEDS: Celecoxib 200 MG CAPSULE PO SCH ×2 (09:07→21:15)
[2017-06-23 10:06] LABS: INR 1.7; Prothrombin Time 18.4 Seconds (9.4-12.1)
--- NOTE | 2017-06-23 11:55 | Internal Med Progress Note ---
Date of Encounter: 06/23/17 Time of Encounter: 15:51 - Assessment and plan (1) Great toe amputation status Current Visit: Yes Status: Acute Assessment and plan: Patient has dressings to bilateral feet which are dry and intact. Afebrile. Patient denies any pain to bilateral feet currently. We will continue with current plan of care and therapy. The current signs of acute infection Qualifiers: Laterality: left Qualified Code(s): Z89.412 - Acquired absence of left great toe (2) History of lumbar laminectomy for spinal cord decompression Current Visit: No Status: Acute Assessment and plan: No acute issues. 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 Patient also has chronic weakness secondary to RA. No acute neurological changes noted during exam (3) CKD (chronic kidney disease) Current Visit: No Status: Acute Assessment and plan: No acute issues. Patient's creatinine remains at 1.3 on last lab draw. We will reevaluate labs in several days. We will continue with current medications. Qualifiers: Chronic kidney disease stage: stage 3 (moderate) Qualified Code(s): N18.3 - Chronic kidney disease, stage 3 (moderate) (4) Constipation Current Visit: Yes Status: Acute Assessment and plan: Patient complains of constipation, stating no BM in the last few days. We will evaluate current scheduled laxatives. We will start senna and give Dulcolax tablets for today Qualifiers: Qualified Code(s): K59.00 - Constipation, unspecified - Subjective Interval history: Patient states that he feels he has been progressing well with therapy. Patient continues with complaints of pain to his right hip area which he had to from a fall prior to this admission. Patient states his pain continues to be tolerable with current medications. Denies any shortness of breath or productive cough. Patient does have some complaints of constipation stating he has not had a bowel movement in 3 days. He denies any nausea - Constitutional Vitals: Temp Pulse Resp BP Pulse Ox 97.2 F L 85 20 115/74 98 06/23/17 07:03 06/23/17 07:03 06/23/17 07:03 06/23/17 07:03 06/23/17 07:03 General appearance: Present: A&O X 3, pleasant - Head Head exam: Present: atraumatic, normocephalic - Neck Neck exam general surgery: Present: supple, trachea midline. Absent: lymphadenopathy - Respiratory Respiratory exam: Present: CTAB. Absent: accessory muscle use, rales, rhonchi, wheezes Additional comments: Lungs are clear to auscultation to upper linares but diminished throughout lower basis. Rest her rate is regular and relaxed - Cardiovascular Cardiovascular exam: Present: RRR, +S1, +S2. Absent: diastolic murmur, gallop, rubs, systolic murmur - GI/Abdominal GI/Abdominal exam: Present: normal bowel sounds, soft, no peritoneal signs. Absent: distended, tenderness - Neurological Exam Neurological exam: Present: CN II-XII intact, oriented X3, no focal deficits. Absent: pronater drift, facial droop, speech deficit Additional comments: MS to BUE 5/5 and BLE 4/5. Noted poor hand grasp tothe left hand due to RA contractures. - Skin Skin exam: Present: abrasion Additional comments: Patient with multiple bruises and abrasions to bilateral legs and elbows. Patient states that his abrasions occurred during his fall prior to this admission Internal Medicine: Result - Labs CBC & Chem 7: 06/21/17 05:00 06/21/17 05:00 - ABG Interpretation ABG results: PT/INR, D-dimer PT 18.4 Seconds (9.4-12.1) H 06/23/17 07:23 Consult Discharge Plan - Plan Referrals: Louis Farrar MD [Primary Care Provider] -
[2017-06-23] MEDS: Acetaminophen 325 MG TABLET PO PRN (17:23)
[2017-06-23] MEDS ORDERED: *HR* Warfarin 3 MG TABLET PO SCH (18:00)
[2017-06-23] MEDS ORDERED: *HR* Warfarin 2 MG TABLET PO ONE (18:00)
[2017-06-23] MEDS: Sennosides/Docusate Sodium TABLET PO SCH (21:14)
[2017-06-23] MEDS: *HR* LORazepam 0.5 MG TABLET PO SCH (21:14)
[2017-06-24 05:42] LABS: Hematocrit 17.9 % (37.5-50.1); Mean Corpuscular HGB Conc 30.7 g/dL (31.6-35.5); Mean Corpuscular Hemoglobin 29.7 pg (28.0-33.3); Mean Corpuscular Volume 96.8 fL (83.0-100.0); Mean Platelet Volume 9.8 fL (9.4-12.4); Platelet Count 380 K/mcL (140-400); Red Blood Count 1.85 M/mcL (4.19-5.50); Red Cell Distribution Width 18.1 % (11.5-14.5)
[2017-06-24 05:44] LABS: Prothrombin Time 21.7 Seconds (9.4-12.1)
[2017-06-24 05:54] LABS: Alanine Aminotransferase 40 Units/L (0-55); Albumin 2.1 g/dL (3.5-5.0); Albumin/Globulin Ratio 0.6 (1.1-2.2); Alkaline Phosphatase 69 Units/L (38-126); Aspartate Amino Transferase 41 Units/L (5-34); BUN/Creatinine Ratio 30 (6-26); Bilirubin,Total 0.9 mg/dL (0.2-1.2); Blood Urea Nitrogen 43 mg/dL (8-26); Calcium 8.2 mg/dL (8.6-10.8); Carbon Dioxide 20 mEq/L (19-29); Chloride 109 mEq/L (98-109); Globulin 3.4 g/dL (2.4-3.5); Glucose 99 mg/dL (70-99); Osmolality,Calculated 297 (280-300); Sodium 138 mEq/L (136-145); Total Protein 5.5 g/dL (6.0-8.3); eGFR For African Americans > 60 (> 60); eGFR For Non-African Americans 51 (> 60)
[2017-06-24 05:59] LABS: Hemoglobin 5.5 g/dL (12.9-16.9)
[2017-06-24] MEDS: *HR* OxyCODONE Immed Rel 5 MG TABLET PO PRN ×4 (07:15→23:15)
--- NOTE | 2017-06-24 10:10 | Internal Med Progress Note ---
Date of Encounter: 06/24/17 Time of Encounter: 10:05 - Assessment and plan (1) Great toe amputation status Current Visit: Yes Status: Acute Assessment and plan: Patient has dressings to bilateral feet which are dry and intact. Afebrile. Patient denies any pain to bilateral feet currently. We will continue with current plan of care and therapy. The current signs of acute infection Qualifiers: Laterality: left Qualified Code(s): Z89.412 - Acquired absence of left great toe (2) History of lumbar laminectomy for spinal cord decompression Current Visit: No Status: Acute Assessment and plan: No acute issues. Patient examined continues to show paraparesis with MS 4/5 to BLE. BUE with 5/5 MS. Patient also has chronic weakness secondary to RA to bilateral extremities. Noted limited ROm of bilateral hands. No acute neurological changes noted during exam per medical records that were reviewed. (3) CKD (chronic kidney disease) Current Visit: No Status: Acute Assessment and plan: No acute issues. Patient's creatinine remains at 1.3 on previous blood draw. Patient's labs showed a creatinine of 1.5 and a potassium of 5.0. Patient currently does not receive any potassium supplements. We will recheck patient' s chemistries on next blood draw. Patient's hemoglobin is currently dropped to 5.5. Patient has received 2 units of packed RBCs and will recheck patient's hemoglobin and chemistries on posttransfusion blood draw. We will continue with current medications. Qualifiers: Chronic kidney disease stage: stage 3 (moderate) Qualified Code(s): N18.3 - Chronic kidney disease, stage 3 (moderate) (4) Constipation Current Visit: Yes Status: Chronic Assessment and plan: Patient complains of constipation, stating minimal BM in the last few days. We will continue on current scheduled laxatives. Qualifiers: Constipation type: unspecified constipation type Qualified Code(s): K59.00 - Constipation, unspecified (5) Anemia Current Visit: Yes Status: Chronic Assessment and plan: Patient's hemoglobin today was 7.0. Labs were repeated this morning shows a drop in hemoglobin to 5.5. Patient has remained asymptomatic with vital signs but does state he feels a little weak. We will give 2 units of packed RBCs and will reevaluate patient's hemoglobin after transfusion. No signs of active bleeding noted. Patient states long history of unspecified type anemia. We will check a serum iron in the morning. Qualifiers: Anemia type: unspecified type Qualified Code(s): D64.9 - Anemia, unspecified - Subjective Interval history: Patient states that he feels weaker today. Denies any palpitations, discomforts or dyspnea. Patient's hemoglobin has been low at 7.0 and labs were repeated this morning which showed her hemoglobin dropped to 5.5. Potassium 5.0. Patient has remained asymptomatic with blood pressure and heart rate. States the history of chronic anemia. Denies any history of GI bleed. Patient does state that his stools have been very dark, but patient has also taken oral iron supplements. - Constitutional Vitals: Temp Pulse Resp BP Pulse Ox 98.1 F 89 16 112/60 96 06/24/17 07:21 06/24/17 07:21 06/24/17 07:21 06/24/17 07:21 06/24/17 07:21 General appearance: Present: A&O X 3, pleasant - Respiratory Respiratory exam: Present: CTAB Additional comments: Lungs clear to up refills, but diminished to lower posterior bases - Cardiovascular Cardiovascular exam: Present: RRR, +S1, +S2. Absent: diastolic murmur, gallop, rubs, systolic murmur Additional comments: Patient's pulses are very faint bilateral lower extremities. - GI/Abdominal GI/Abdominal exam: Present: normal bowel sounds, soft, no peritoneal signs. Absent: distended, tenderness - Extremities Exam Extremities exam: Present: warm, radial pulses palpable and symmetrical. Absent : calf tenderness, cyanotic, pedal edema Additional comments: Patient has dressings to bilateral feet which remained clean dry and intact. Sluggish capillary refill noted to bilateral feet. Patient noted to have vascular Joya to bilateral legs up to the level of the knees. Bilateral lower legs show muscle atrophy. - Neurological Exam Neurological exam: Present: CN II-XII intact, oriented X3, no focal deficits. Absent: pronater drift, facial droop, speech deficit - Skin Skin exam: Present: dry, intact, warm Internal Medicine: Result - Labs CBC & Chem 7: 06/24/17 05:20 06/24/17 05:20 Labs: Short CBC 06/24/17 Range/Units 05:20 WBC 9.1 (4.3-11.1) K/mcL Hgb 5.5 L* D (12.9-16.9) g/dL Hct 17.9 L (37.5-50.1) % Plt Count 380 (140-400) K/mcL BMP 06/24/17 05:20 Sodium 138 Potassium 5.0 H Chloride 109 Carbon Dioxide 20 BUN 43 H Creatinine 1.41 H Glucose 99 Calcium 8.2 L Liver Function 06/24/17 Range/Units 05:20 Total Bilirubin 0.9 (0.2-1.2) mg/dL AST 41 H (5-34) Units/L ALT 40 (0-55) Units/L Alkaline Phosphatase 69 (38-126) Units/L Albumin 2.1 L (3.5-5.0) g/dL - ABG Interpretation ABG results: PT/INR, D-dimer PT 21.7 Seconds (9.4-12.1) H 06/24/17 05:20 Consult Discharge Plan - Plan Referrals: Louis Farrar MD [Primary Care Provider] -
[2017-06-24] MEDS: methylPREDNISolone 4 MG TABLET PO SCH ×2 (10:57→20:33)
[2017-06-24] MEDS: Celecoxib 200 MG CAPSULE PO SCH ×2 (10:57→20:32)
[2017-06-24] MEDS: Aspirin 81 MG TAB.CHEW PO SCH (10:57)
[2017-06-24] MEDS: Metoprolol XL (24 HR) Succ 50 MG TAB.ER.24H PO SCH (10:57)
[2017-06-24] MEDS: Sennosides/Docusate Sodium TABLET PO SCH ×2 (10:57→20:34)
[2017-06-24] MEDS: Ascorbic Acid 500 MG TABLET PO SCH (10:57)
[2017-06-24] MEDS: *HR* Enoxaparin 80 MG/0.8 ML SYRINGE SQ SCH ×3 (10:58→22:32)
--- NOTE | 2017-06-24 12:46 | Internal Med Progress Note ---
Date of Encounter: 06/24/17 Time of Encounter: 12:43 - Assessment and plan (1) Great toe amputation status Current Visit: Yes Status: Acute Assessment and plan: Patient has dressings to bilateral feet which are dry and intact. Afebrile. Patient denies any pain to bilateral feet currently. We will continue with current plan of care and therapy. The current signs of acute infection. We will continue with nonweightbearing status Qualifiers: Laterality: left Qualified Code(s): Z89.412 - Acquired absence of left great toe (2) History of lumbar laminectomy for spinal cord decompression Current Visit: No Status: Acute Assessment and plan: No acute issues. Patient examined continues to show paraparesis with MS 4/5 to BLE. BUE with 5/5 MS. Patient also has chronic weakness secondary to RA to bilateral extremities. Noted limited ROm of bilateral hands. No acute neurological changes noted during exam per medical records that were reviewed. Patient continues to have unsteady gait due to paraparesis and bilateral foot ulcers (3) CKD (chronic kidney disease) Current Visit: No Status: Acute Assessment and plan: No acute issues. Patient's creatinine remains at 1.3 on previous blood draw. Patient's labs showed a creatinine of 1.5 and a potassium of 5.0. Patient currently does not receive any potassium supplements. We will recheck patient' s chemistries on next blood draw. Patient's hemoglobin is currently dropped to 5.5. Patient has received 2 units of packed RBCs and will recheck patient's hemoglobin and chemistries on posttransfusion blood draw. We will continue with current medications. Qualifiers: Chronic kidney disease stage: stage 3 (moderate) Qualified Code(s): N18.3 - Chronic kidney disease, stage 3 (moderate) (4) Constipation Current Visit: Yes Status: Chronic Qualifiers: Constipation type: unspecified constipation type Qualified Code(s): K59.00 - Constipation, unspecified (5) Anemia Current Visit: Yes Status: Chronic Assessment and plan: Patient's hemoglobin today was 7.0. Labs were repeated this morning shows a drop in hemoglobin to 5.5. Patient has remained asymptomatic with vital signs but does state he feels a little weak. We will give 2 units of packed RBCs and will reevaluate patient's hemoglobin after transfusion. No signs of active bleeding noted. Patient states long history of unspecified type anemia. We will check a serum iron in the morning. 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 Patient currently is also being treated for bilateral infected ulcers and osteomyelitis to his feet and currently is nonweightbearing. Patient remains a high risk for fall and possible injury. Patient did not prepare for discharge and would recommend use of a standard wheelchair to reduce risk of fall and injury due to his unsteady gait. Patient will require the assistance of a standard wheelchair to successfully complete daily living task of : toileting, feeding, bathing, dressing and grooming, or any other daily living task in the home. Standard wheelchair as necessary due to patient's impaired ambulation and mobility restrictions and would not be able to resolve these daily living task using a cane or walker. The patient is capable of using a standard wheelchair safely in her home and can maneuver within the home with adequate access. There is a caregiver available to provide assistance. The patient has not expressed unwillingness to use a wheelchair - Subjective Interval history: Patient continues to state that he has moderate generalized weakness. Patient currently is nonweightbearing to his feet due to surgical wounds during debridement of diabetic foot ulcers and osteomyelitis. Patient complains of moderate pain to bilateral legs. Patient with history of severe peripheral vascular disease.. - Constitutional Vitals: Temp Pulse Resp BP Pulse Ox 98.1 F 115 16 103/65 98 06/24/17 11:27 06/24/17 11:27 06/24/17 11:27 06/24/17 11:27 06/24/17 11:27 General appearance: Present: A&O X 3, pleasant - Respiratory Respiratory exam: Present: CTAB. Absent: accessory muscle use, rales, rhonchi, wheezes - Cardiovascular Cardiovascular exam: Present: RRR, +S1, +S2. Absent: diastolic murmur, gallop, rubs, systolic murmur - GI/Abdominal GI/Abdominal exam: Present: normal bowel sounds, soft, no peritoneal signs. Absent: distended, tenderness - Extremities Exam Additional comments: Patient with muscle atrophy to bilateral lower legs and noted vascular Joya up to his knees. Pulses are nonpalpable and bilateral feet feel cool. Bilateral feet with dressings are dry and intact - Neurological Exam Neurological exam: Present: CN II-XII intact, oriented X3. Absent: no focal deficits, pronater drift, facial droop, speech deficit Additional comments: Paraparesis with bilateral lower extremities with muscle strength 4/5 in bilateral upper extremities with muscle strength 5/5 Internal Medicine: Result - Labs CBC & Chem 7: 06/24/17 05:20 06/24/17 05:20 Labs: Short CBC 06/24/17 Range/Units 05:20 WBC 9.1 (4.3-11.1) K/mcL Hgb 5.5 L* D (12.9-16.9) g/dL Hct 17.9 L (37.5-50.1) % Plt Count 380 (140-400) K/mcL BMP 06/24/17 05:20 Sodium 138 Potassium 5.0 H Chloride 109 Carbon Dioxide 20 BUN 43 H Creatinine 1.41 H Glucose 99 Calcium 8.2 L Liver Function 06/24/17 Range/Units 05:20 Total Bilirubin 0.9 (0.2-1.2) mg/dL AST 41 H (5-34) Units/L ALT 40 (0-55) Units/L Alkaline Phosphatase 69 (38-126) Units/L Albumin 2.1 L (3.5-5.0) g/dL - ABG Interpretation ABG results: PT/INR, D-dimer PT 21.7 Seconds (9.4-12.1) H 06/24/17 05:20 Consult Discharge Plan - Plan Referrals: Louis Farrar MD [Primary Care Provider] -
[2017-06-24] MEDS ORDERED: 0.9 % Sodium Chloride 250 ML ONE (14:37)
[2017-06-24] MEDS: Ondansetron ODT 4 MG TAB.RAPDIS SL PRN (14:44)
[2017-06-24] MEDS ORDERED: *HR* Warfarin 2 MG TABLET PO SCH (18:00)
[2017-06-24] MEDS: Acetaminophen 325 MG TABLET PO PRN (18:00)
[2017-06-24 20:28] LABS: Hematocrit 24.9 % (37.5-50.1); Hemoglobin 8.1 g/dL (12.9-16.9)
[2017-06-24] MEDS: *HR* LORazepam 0.5 MG TABLET PO SCH (20:32)
[2017-06-24 20:43] LABS: BUN/Creatinine Ratio 31 (6-26); Blood Urea Nitrogen 41 mg/dL (8-26); Calcium 8.2 mg/dL (8.6-10.8); Carbon Dioxide 18 mEq/L (19-29); Chloride 109 mEq/L (98-109); Glucose 100 mg/dL (70-99); Osmolality,Calculated 294 (280-300); Potassium 4.8 mEq/L (3.5-4.5); Sodium 137 mEq/L (136-145); eGFR For African Americans > 60 (> 60); eGFR For Non-African Americans 54 (> 60)
[2017-06-25] MEDS: Acetaminophen 325 MG TABLET PO PRN ×3 (00:09→12:27)
[2017-06-25] MEDS: *HR* OxyCODONE Immed Rel 5 MG TABLET PO PRN ×4 (03:24→16:24)
[2017-06-25 06:28] LABS: Hematocrit 22.4 % (37.5-50.1)
[2017-06-25 06:36] LABS: INR 2.6; Prothrombin Time 28.9 Seconds (9.4-12.1)
[2017-06-25] MEDS: Sennosides/Docusate Sodium TABLET PO SCH (08:16)
[2017-06-25] MEDS: methylPREDNISolone 4 MG TABLET PO SCH (08:17)
[2017-06-25] MEDS: Ascorbic Acid 500 MG TABLET PO SCH (08:17)
[2017-06-25] MEDS: Aspirin 81 MG TAB.CHEW PO SCH (08:17)
[2017-06-25] MEDS: Celecoxib 200 MG CAPSULE PO SCH (08:17)
[2017-06-25] MEDS: Metoprolol XL (24 HR) Succ 50 MG TAB.ER.24H PO SCH (08:18)
[2017-06-25] MEDS: *HR* Enoxaparin 80 MG/0.8 ML SYRINGE SQ SCH (08:20)
--- NOTE | 2017-06-25 10:54 | Internal Med Progress Note ---
Date of Encounter: 06/25/17 Time of Encounter: 10:48 - Assessment and plan (1) Great toe amputation status Current Visit: Yes Status: Acute Assessment and plan: Patient has dressings to bilateral feet which are dry and intact. Afebrile. Patient denies any pain to bilateral feet currently. We will continue with current plan of care. No acute signs of acute infection. We will continue with nonweightbearing status Qualifiers: Laterality: left Qualified Code(s): Z89.412 - Acquired absence of left great toe (2) History of lumbar laminectomy for spinal cord decompression Current Visit: No Status: Acute Assessment and plan: No acute issues. Patient examined continues to show paraparesis with MS 4/5 to BLE. BUE with 5/5 MS. Patient also has chronic weakness secondary to RA to bilateral extremities. Noted limited ROm of bilateral hands. No acute neurological changes noted during exam per medical records that were reviewed. Patient continues to have unsteady gait due to paraparesis and bilateral foot ulcers (3) CKD (chronic kidney disease) Current Visit: No Status: Acute Assessment and plan: No acute issues. Patient's creatinine remains at 1.3 on previous blood draw. Patient's labs showed a creatinine of 1.5 and a potassium of 5.0. Patient currently does not receive any potassium supplements. We will recheck patient' s chemistries on next blood draw. Patient's hemoglobin is currently dropped to 5.5. Patient has received 2 units of packed RBCs and will recheck patient's hemoglobin and chemistries on posttransfusion blood draw. We will continue with current medications. Qualifiers: Chronic kidney disease stage: stage 3 (moderate) Qualified Code(s): N18.3 - Chronic kidney disease, stage 3 (moderate) (4) Constipation Current Visit: Yes Status: Chronic Qualifiers: Constipation type: unspecified constipation type Qualified Code(s): K59.00 - Constipation, unspecified (5) Anemia Current Visit: Yes Status: Chronic Assessment and plan: Patient recently had an acute drop in hemoglobin to 7.0. Patient received 2 units of packed RBCs with his post transfusion hemoglobin at 8.1. Patient had a hemoglobin that was redrawn this morning which showed a drop to 7.0. Patient currently being worked up for a possible hematoma to the right femoral secondary to a fall prior to admission.. Qualifiers: Anemia type: unspecified type Qualified Code(s): D64.9 - Anemia, unspecified (6) Unsteady gait Current Visit: Yes Status: Chronic (7) Hematoma Current Visit: Yes Status: Acute Assessment and plan: Patient complaints of pain to his right thigh area secondary to fall prior to admission. Patient had a small amount of swelling that has progressed in size over the past several days. Ultrasound was obtained which shows a 10 x 10 cm hematoma. Right thigh currently appears firm and swollen. Patient's hemoglobin had recently dropped required transfusion. Distal pulses have been diminished due to patient's long history of vascular disease. Patient had related recent surgical history at in May during which time he had a vascular intervention to the left leg and stated that they decreased the right groin for vascular access. Patient also related a history while admitted at of a possible right retroperitoneal hematoma. Right leg pulses remain easily found by Doppler and leg is warm to touch. We will hold current Coumadin dosing and Lovenox. We will discuss with Dr. Wharton. Patient also be being prepared for transfer for vascular evaluation. - Subjective Interval history: Patient with complaints of increased pain to his right thigh area. Right thigh has appeared to have increased swelling and tenderness during palpation. Ultrasound was obtained which showed a 10 x 10 cm hematoma. Patient had a fall prior to admission and has had complaints of pain to the right thigh since his admission. X-ray right hip was negative. Patient states history of recent vascular intervention at , during which time they had used the right femoral artery access point. Patient states that he had a HR ASSISTANT performed on the left leg at that time. Patient also relates having issues while at with a hematoma which drained his description sounded as a possible retroperitoneal bleed along the right lower abdominal flank. Patient has been on anticoagulation due to his history of DVT and today his INR was 2.6. Patient has had a recent drop in his hemoglobin down to 5.5 and had received 2 units of packed RBCs. Follow-up hemoglobin last evening was at 8.1 and this morning it dropped to 7.0. Patient denies any pain or acute decreased sensation to his right leg distal to the hematoma site - Constitutional Vitals: Temp Pulse Resp BP Pulse Ox 97.0 F L 98 18 141/88 97 06/25/17 07:46 06/25/17 07:46 06/25/17 07:46 06/25/17 07:46 06/25/17 07:46 General appearance: Present: cooperative, A&O X 3, pleasant - Neck Neck exam general surgery: Present: supple, trachea midline. Absent: lymphadenopathy - Respiratory Respiratory exam: Present: CTAB. Absent: accessory muscle use, rales, rhonchi, wheezes - Cardiovascular Cardiovascular exam: Present: RRR, +S1, +S2. Absent: diastolic murmur, gallop, rubs, systolic murmur - GI/Abdominal GI/Abdominal exam: Present: normal bowel sounds, soft, no peritoneal signs. Absent: distended, tenderness - Extremities Exam Extremities exam: Present: warm, radial pulses palpable and symmetrical. Absent : calf tenderness, cyanotic, pedal edema Additional comments: Right thigh appears swollen at the groin area. No signs of ecchymosis. Bilateral lower pedal pulses have not been palpable, but are easily found by doppler - Neurological Exam Neurological exam: Present: CN II-XII intact, oriented X3, no focal deficits. Absent: pronater drift, facial droop, speech deficit Internal Medicine: Result - Labs CBC & Chem 7: 06/25/17 06:18 06/24/17 20:23 Labs: Short CBC 06/24/17 06/25/17 Range/Units 20:23 06:18 Hgb 8.1 L D 7.0 L (12.9-16.9) g/dL Hct 24.9 L 22.4 L (37.5-50.1) % BMP 06/24/17 20:23 Sodium 137 Potassium 4.8 H Chloride 109 Carbon Dioxide 18 L BUN 41 H Creatinine 1.33 H Glucose 100 H Calcium 8.2 L - ABG Interpretation ABG results: PT/INR, D-dimer PT 28.9 Seconds (9.4-12.1) H 06/25/17 06:18 - Impressions Impressions Extremity Ultrasound 06/24/17 16:04 IMPRESSION: Complex cystic mass measuring at least 10.5 cm x 10.0 cm x 4.0 cm in the anterior right thigh at the area of concern. There is a suspected fluid-hematocrit level suggestive of hematoma. The mass is not definitely localized to the subcutaneous tissues or musculature. D/ / Wilson Bailon MD / Wilson Bailon MD Interpreting Provider: Wilson Bailon MD Consult Discharge Plan - Plan Referrals: Louis Farrar MD [Primary Care Provider] -
[2017-06-25 13:10] VITALS: BP 136/72
--- NOTE | 2017-06-25 14:07 | Discharge Summary ---
Date of Encounter: 06/25/17 Time of Encounter: 14:05 - Discharge Diagnosis (1) HTN (hypertension) Priority: Secondary Status: Acute Qualifiers: Hypertension type: essential hypertension Qualified Code(s): I10 - Essential (primary) hypertension (2) History of lumbar laminectomy for spinal cord decompression Priority: Primary Status: Acute (3) H/O spinal fusion Priority: Primary Status: Acute - Discharge Medications Home Medications: Acetaminophen [Tylenol] 650 mg PO Q6HR PRN 10/14/16 [History] Ascorbic Acid [C-1000] 1,000 mg PO DAILY 10/14/16 [History] Calcitriol [Rocaltrol] 0.25 mcg PO HS 10/14/16 [History] Cyclobenzaprine [Flexeril] 5 mg PO TID PRN 10/14/16 [History] Ferrous Sulfate [Iron] 325 mg PO BIDWM 10/14/16 [History] Hydroxychloroquine [Plaquenuil] 200 mg PO BID 10/14/16 [History] Metoprolol XL (24 HR) Succ [Toprol XL] 25 mg PO DAILY 10/14/16 [History] OxyCODONE Immed Rel [Roxicodone 5 MG] 5 mg PO Q4H PRN 10/14/16 [History] Paroxetine HCl [Paxil] 20 mg PO DAILY 10/14/16 [History] Sennosides/Docusate Sodium [Senna-S Tablet] 1 tab PO HS 10/14/16 [History] methylPREDNISolone [Medrol] 4 mg PO BID 10/14/16 [History] Aspirin 81 mg PO DAILY 06/18/17 [History] Pantoprazole Sodium [Protonix] 40 mg PO DAILY 06/18/17 [History] Allergies/Adverse Reactions: 3 Allergy/AdvReac Type Severity Reaction Status Date / Time carvedilol [From Coreg] Allergy Gastrointestinal Verified 06/18/17 01:17 Upset diphenhydramine Allergy Chills Verified 06/18/17 01:17 [From Benadryl] Procedures/tests Complete & Pending: Procedures Performed prior 72 hours Category Date Time Status US extremity nonvascular RT [US] Stat Exams 06/24/17 16:04 Completed Date of admission: 06/18/17 00:53 Primary care physician: Louis Farrar MD Consults: 06/18/17 02:40 Consult to Occupational Therapy [CONS] Routine Comment: eval / tx Reason for Consult: eval / tx Consult to Physical Therapy [CONS] Routine Comment: eval / tx Reason for Consult: eval / tx Consult to Recreational Therapy [CONS] Routine Comment: Consult to [employer] [CONS] Routine Reason for SW Consult: dc planning Discharging clinician: Abilio Wharton Anticipated date of discharge: 06/25/17 - Patient Status Disposition: Transfer Other Condition: Fair Functional capacity at discharge: wheelchair bound - Discharge Instructions Follow Up With: Louis Farrar MD [Primary Care Provider] - - Diet and Activity Diet: advance to your usual diet Interval History: Ricardo was brought here after surgery for rehabilitation since he was very debilitated. He had been ambulatory previous visit and he is wheelchair bound now. I checked a hemoglobin because he had pain in his anterior right thigh. And it was less than 6. He was type and cross for 2 units was transfused and overnight he dropped another gram so I have elected to transfer him to [place] with the possibility of draining his hematoma in his right anterior thigh exists. Is very painful joint disease really complaining of nail. There is a firm area of about 50-20 cm from distal to proximal about 7 or 8 cm wide. Very tender and very firm. When I did the ultrasound and said it was highly likely was the hematoma. I need to rule out these bleeding from any other sources. In addition we stopped his blood thinners including Coumadin. Hospital course: Mr. Hunt is a 66 year old male He has been working with therapy he does certainly try in spite of all of his difficulties. So I made arrangements for him to be transferred to a DNR and [facility] stabilized will except back. - Time Spent with Patient Total time spent providing and/or coordinating discharge services: Less than 30 minutes - Constitutional Vitals: Temp Pulse Resp BP Pulse Ox 97 F L 92 18 136/72 97 06/25/17 13:09 06/25/17 13:09 06/25/17 13:09 06/25/17 13:09 06/25/17 13:09 General appearance: Present: cooperative, A&O X 3, pleasant - Head Head exam: Present: atraumatic, normal inspection, normocephalic - Neck Neck exam general surgery: Present: supple, trachea midline. Absent: lymphadenopathy - Respiratory Respiratory exam: Present: CTAB. Absent: accessory muscle use, rales, rhonchi, wheezes - Cardiovascular Cardiovascular exam: Present: RRR, +S1, +S2. Absent: diastolic murmur, gallop, rubs, systolic murmur - GI/Abdominal GI/Abdominal exam: Present: normal bowel sounds, soft, no peritoneal signs. Absent: distended, tenderness
[2017-06-25 14:48] LABS: Hematocrit 20.6 % (37.5-50.1); Hemoglobin 6.7 g/dL (12.9-16.9); Mean Corpuscular HGB Conc 32.5 g/dL (31.6-35.5); Mean Corpuscular Hemoglobin 30.3 pg (28.0-33.3); Mean Corpuscular Volume 93.2 fL (83.0-100.0); Mean Platelet Volume 9.6 fL (9.4-12.4); Platelet Count 388 K/mcL (140-400); Red Blood Count 2.21 M/mcL (4.19-5.50); Red Cell Distribution Width 17.7 % (11.5-14.5)
[2017-06-25] MEDS ORDERED: *HR* Warfarin 1 MG TABLET PO ONE (18:00)
== END 2017-06-25 16:30 | disposition short-term general hospital (02) | DRG 560 ==
LOC: INPGRE 06-18 00:53
PROVIDERS: ADMIT Internal Medicine; ATTEND Internal Medicine

== ENCOUNTER 2017-07-01 16:35 | Inpatient (IN) ==
[2017-07-01] MEDS ORDERED: (Alendronate Sodium [Alendronate Sodium] 70 MG) PO SCH (17:15)
[2017-07-01] MEDS: methylPREDNISolone 4 MG TABLET PO SCH (21:56)
[2017-07-01] MEDS: *HR* OxyCODONE/APAP 5/325 TABLET PO PRN (21:57)
[2017-07-01] MEDS: Celecoxib 200 MG CAPSULE PO SCH (21:57)
[2017-07-01] MEDS: *HR* LORazepam 0.5 MG TABLET PO SCH (21:58)
[2017-07-01] MEDS: Sennosides/Docusate Sodium TABLET PO SCH (21:58)
[2017-07-02 05:04] LABS: Basophils % 0.6 %; Eosinophils # 0.1 K/mcL (0.0-0.6); Eosinophils % 1.9 %; Hematocrit 31.7 % (37.5-50.1); Hemoglobin 10.2 g/dL (12.9-16.9); Immature Granulocytes % 5.2 % (0-4); Lymphocytes # 0.6 K/mcL (0.6-4.6); Lymphocytes % 11.9 %; Mean Corpuscular HGB Conc 32.2 g/dL (31.6-35.5); Mean Corpuscular Hemoglobin 29.1 pg (28.0-33.3); Mean Corpuscular Volume 90.6 fL (83.0-100.0); Mean Platelet Volume 8.9 fL (9.4-12.4); Monocytes # 0.5 K/mcL (0.0-1.3); Monocytes % 10.8 %; Neutrophils # 3.2 K/mcL (1.6-8.9); Platelet Count 331 K/mcL (140-400); Red Cell Distribution Width 16.2 % (11.5-14.5); Segmented Neutrophils % 69.6 %
[2017-07-02 05:13] LABS: Activated Partial Thrombo Time 25.5 Seconds (26.0-36.0)
[2017-07-02 05:17] LABS: Platelet Estimate Normal (Normal)
[2017-07-02 05:18] LABS: BUN/Creatinine Ratio 25 (6-26); Blood Urea Nitrogen 26 mg/dL (8-26); Calcium 8.5 mg/dL (8.6-10.8); Carbon Dioxide 21 mEq/L (19-29); Chloride 109 mEq/L (98-109); Glucose 97 mg/dL (70-99); Osmolality,Calculated 289 (280-300); Potassium 4.5 mEq/L (3.5-4.5); Sodium 137 mEq/L (136-145); eGFR For African Americans > 60 (> 60); eGFR For Non-African Americans > 60 (> 60)
[2017-07-02] MEDS: amLODIPine 5 MG TABLET PO SCH (08:31)
[2017-07-02] MEDS: Celecoxib 200 MG CAPSULE PO SCH ×2 (08:31→21:19)
[2017-07-02] MEDS: Ascorbic Acid 500 MG TABLET PO SCH (08:31)
[2017-07-02] MEDS: *HR* LORazepam 0.5 MG TABLET PO SCH ×2 (08:31→21:19)
[2017-07-02] MEDS: methylPREDNISolone 4 MG TABLET PO SCH ×2 (08:31→21:19)
[2017-07-02] MEDS: Metoprolol XL (24 HR) Succ 25 MG TAB.ER.24H PO SCH (08:32)
[2017-07-02] MEDS: *HR* OxyCODONE/APAP 5/325 TABLET PO PRN ×2 (08:38→21:19)
--- NOTE | 2017-07-02 13:05 | Internal Med History&Physical ---
Date of Encounter: 07/02/17 Time of Encounter: 12:58 Assessment and Plan (1) Thigh hematoma Current visit: No Status: Acute Patient has a hematoma to the right thigh which was evaluated at the hospital by a vascular surgeon. Attempts to aspirate was unsuccessful and our recommendations are to allow the hematoma to liquefy and reevaluate at a later date. Currently left thigh edema has decreased, but patient continues to have tenderness to the left thigh. We will continue to monitor closely. Anticoagulation has been discontinued. Patient will continue with physical therapy and continue with current medications. No vascular compromise has been noted. Qualifiers: Encounter type: subsequent encounter Laterality: right Qualified Code(s) : S70.11XD - Contusion of right thigh, subsequent encounter (2) Great toe amputation status Current visit: No Status: Acute Patient continues to require daily dressing changes to bilateral feet. During evaluation at [place] was determined that he no longer has osteomyelitis and his IV antibiotics were discontinued. Patient will continue on oral antibiotics. We will continue to monitor. We will continue with physical therapy. Qualifiers: Laterality: left Qualified Code(s): Z89.412 - Acquired absence of left great toe (3) H/O spinal fusion Current visit: No Status: Acute Patient continues to have monitored weakness to bilateral lower extremities secondary to spinal stenosis. Patient with functional paraparesis and currently is wheelchair bound. Patient is able to transfer with the use of a walker and continues with physical therapy with the goal of patient returning to ambulation status. No acute neurological deficits have been noted on exam. We will continue with current therapy (4) CKD (chronic kidney disease) Current visit: No Status: Chronic No acute issues. We will review patient's most recent labs. We will continue with current medications. Qualifiers: Chronic kidney disease stage: stage 3 (moderate) Qualified Code(s): N18.3 - Chronic kidney disease, stage 3 (moderate) (5) DVT prophylaxis Current visit: No Status: Acute It is been determined is been several months since patient's DVT and due to issues with his coag ability in relation to the hematoma, there is recommendations to discontinue Coumadin at this time. We will continue to mobilize patient and continue with nonmedication steps for DVT prophylaxis. (6) HTN (hypertension) Current visit: No Status: Chronic Vital signs stable. We will continue with current medications. Qualifiers: Hypertension type: essential hypertension Qualified Code(s): I10 - Essential (primary) hypertension Internal Medicine - H&P: HPI Chief complaint: pain to right thigh hematoma Admitted From: Intrahospital Transfer Plans for Post Hospital Care: Home History of present illness: Mr. Hunt is a 66 year old male who is being readmitted to facility for continued rehabilitation due to deconditioning and debility secondary to recent treatment for osteomyelitis of his right foot, which resulted in amputation of the great toe. Patient was admitted at this facility a few weeks ago for physical therapy for treatment of the osteomyelitis with IV antibiotics. At that time patient was on Coumadin and be him bridged with Lovenox until he was therapeutic. Patient was taking Coumadin due to history of DVT. Patient had had a fall prior to his admission and had a hematoma to the right thigh as a result. Patient's hematoma continued to enlarge and he was transferred to [facility] for evaluation by vascular surgeon. During patient's stay he had edema to hematoma was evaluated and attempted aspiration was unsuccessful. It was decided to allow the hematoma and liquefy and reevaluate at a later date. It was determined the patient had no symptoms of compartment syndrome and over a period of several days the edema to the right thigh had decreased. Patient was transferred to this facility for continued physical therapy. It was determined that his osteomyelitis had resolved, but recommended that he continue on oral antibiotics. It was determined the patient had been greater than 6 months from his DVT and his Coumadin was discontinued. Patient currently states that he continues to have pain to the right thigh, which increases during mobilization. Denies any other discomforts or shortness of breath. Patient continues to require dressing changes to bilateral feet. Patient's distal circulation is complicated due to a history of peripheral vascular disease and rheumatoid arthritis. Past Med Surg Social Fam HX - Past Medical History Medical history: arthritis, DVT, GERD, hyperlipidemia, hypertension, kidney stones, RA, renal disease, other (Rheumatoid arthritis, lupus, PE, peripheral vascular disease) Psychiatric history: anxiety - Past Surgical History Surgical History: angioplasty/stent, orthopedic, other (Lumbar laminectomy) - Social History Smoking Status: Never smoker Smokeless Tobacco Status: No Alcohol use: none Drug use: none Occupational status: disabled Current living situation: Home, With Family Activity Level: Uses cane/walker, Wheelchair bound Recent Out of Country Travel Within the Last 8 Weeks: No Exposure or Possible Exposure to Illness During Travel: No - Family History Mother Living Status: Hx Family Neurologic Disorders: Yes Father Living Status: Hx Family Cardiac Disorders: Yes (Hypertension) Hx Family Respiratory Disorders: Yes (Aspestis) Internal Medicine - H&P: Meds Acetaminophen [Tylenol] 650 mg PO Q6HR PRN 10/14/16 [History] Ascorbic Acid [C-1000] 1,000 mg PO DAILY 10/14/16 [History] Calcitriol [Rocaltrol] 0.25 mcg PO HS 10/14/16 [History] Cyclobenzaprine [Flexeril] 5 mg PO TID PRN 10/14/16 [History] Ferrous Sulfate [Iron] 325 mg PO BIDWM 10/14/16 [History] Hydroxychloroquine [Plaquenuil] 200 mg PO BID 10/14/16 [History] Paroxetine HCl [Paxil] 20 mg PO DAILY 10/14/16 [History] Sennosides/Docusate Sodium [Senna-S Tablet] 1 tab PO HS 10/14/16 [History] methylPREDNISolone [Medrol] 4 mg PO BID 10/14/16 [History] Pantoprazole Sodium [Protonix] 40 mg PO DAILY 06/18/17 [History] Alendronate Sodium 70 mg PO QWEEK 06/26/17 [History] Celecoxib [Celebrex] 200 mg PO BID 06/26/17 [History] LORazepam [Ativan] 0.5 mg PO BID 06/26/17 [History] Metoprolol XL (24 HR) Succ [Toprol Xl] 50 mg PO DAILY tab.er.24h 07/01/17 [Rx] OxyCODONE/APAP 5/325 [Percocet 5/325 MG] 1 each PO Q6HR PRN #15 tablet 07/01/17 [Rx] amLODIPine [Norvasc] 10 mg PO DAILY tablet 07/01/17 [Rx] 3 Allergy/AdvReac Type Severity Reaction Status Date / Time carvedilol [From Coreg] Allergy Gastrointestinal Verified 06/18/17 01:17 Upset diphenhydramine Allergy Chills Verified 06/18/17 01:17 [From Benadryl] All Systems PM: A 10-system review of systems was performed and is negative for pertinent findings except as documented above in the HPI. - Constitutional Constitutional: as per HPI - EENT Eyes: no change in vision, no discharge, no pain, no photophobia Nose, mouth and throat: no dysphagia, no nasal discharge, no neck pain, no sore throat - Cardiovascular Cardiovascular ROS IM: no chest pain, no diaphoresis, no dyspnea, no lightheadedness, no palpitations, no syncope - Respiratory Respiratory: no cough, no dyspnea, no wheezing, no excessive phlegm production - Gastrointestinal Gastrointestinal: no abdominal pain, no diarrhea, no hematemesis, no hematochezia, no melena, no nausea, no vomiting - Musculoskeletal Musculoskeletal ROS IM: as per HPI, no numbness, no tingling - Integumentary Integumentary IM: no rash, no unusual bruising - Neurological Neurological ROS: no confusion, no convulsions, no focal weakness, no numbness, no tingling, no tremor(s) - Constitutional Vitals: Temp Pulse Resp BP Pulse Ox 98.2 F 108 15 129/83 98 07/02/17 12:00 07/02/17 12:00 07/02/17 12:00 07/02/17 12:00 07/02/17 12:00 General appearance: Present: A&O X 3 - Head Head exam: Present: atraumatic, normocephalic - Eye Eye exam: Present: PERRL, conjuntiva pink, sclera anicteric Pupils: Present: PERRL - Neck Neck exam general surgery: Present: supple, trachea midline. Absent: lymphadenopathy - Respiratory Respiratory exam: Present: CTAB. Absent: accessory muscle use, rales, rhonchi, wheezes - Cardiovascular Cardiovascular exam: Present: RRR, +S1, +S2. Absent: diastolic murmur, gallop, rubs, systolic murmur - GI/Abdominal GI/Abdominal exam: Present: normal bowel sounds, soft, no peritoneal signs. Absent: distended, tenderness - Extremities Exam Extremities exam: Present: joint swelling, tenderness, warm, radial pulses palpable and symmetrical. Absent: calf tenderness, cyanotic, pedal edema Additional comments: Patient was swelling to right upper thigh at hematoma site and noted slight ecchymosis to the lateral side of thigh. Hematoma site number is currently softer and palpation. Noted slight swelling to bilateral knees and deformity to the hands secondary to rheumatoid arthritis. Bilateral legs with slight muscle wasting. Patient with dressing clean and dry bilateral feet - Neurological Exam Neurological exam: Present: CN II-XII intact, oriented X3, no focal deficits. Absent: pronater drift, facial droop, speech deficit - Skin Skin exam: Present: dry, intact Internal Med - H&P Results - Labs CBC & Chem 7: 07/02/17 04:55 07/02/17 04:55 Labs: Short CBC 07/02/17 Range/Units 04:55 WBC 4.6 (4.3-11.1) K/mcL Hgb 10.2 L (12.9-16.9) g/dL Hct 31.7 L (37.5-50.1) % Plt Count 331 (140-400) K/mcL Neutrophils # 3.2 (1.6-8.9) K/mcL BMP 07/02/17 04:55 Sodium 137 Potassium 4.5 Chloride 109 Carbon Dioxide 21 BUN 26 Creatinine 1.06 Glucose 97 Calcium 8.5 L
[2017-07-02] MEDS: Sennosides/Docusate Sodium TABLET PO SCH (21:19)
[2017-07-03] MEDS: *HR* OxyCODONE/APAP 5/325 TABLET PO PRN ×3 (06:10→20:40)
[2017-07-03] MEDS: Metoprolol XL (24 HR) Succ 25 MG TAB.ER.24H PO SCH (08:39)
[2017-07-03] MEDS: amLODIPine 5 MG TABLET PO SCH (08:39)
[2017-07-03] MEDS: Ascorbic Acid 500 MG TABLET PO SCH (08:39)
[2017-07-03] MEDS: Celecoxib 200 MG CAPSULE PO SCH ×2 (08:40→20:40)
[2017-07-03] MEDS: *HR* LORazepam 0.5 MG TABLET PO SCH ×2 (08:40→20:40)
[2017-07-03] MEDS: methylPREDNISolone 4 MG TABLET PO SCH ×2 (08:40→20:40)
--- NOTE | 2017-07-03 16:16 | Internal Med Progress Note ---
Date of Encounter: 07/03/17 Time of Encounter: 16:00 - Assessment and plan (1) Great toe amputation status Current Visit: No Status: Acute Assessment and plan: Continue working with therapists and supportive care. Wound care will see the patient on Wednesday. Qualifiers: Laterality: left Qualified Code(s): Z89.412 - Acquired absence of left great toe (2) DVT prophylaxis Current Visit: No Status: Acute Assessment and plan: SCD given thigh hematoma. (3) Thigh hematoma Current Visit: No Status: Acute Assessment and plan: Non-surgical as of now. No pharmacological anticoagulation because of this. Will continue to monitor clinically. Qualifiers: Encounter type: subsequent encounter Laterality: right Qualified Code(s) : S70.11XD - Contusion of right thigh, subsequent encounter (4) H/O spinal fusion Current Visit: No Status: Acute Assessment and plan: Currently wheelchair bound. Continue to work with therapists with the goal of returning to ambulation status. - Time Spent With Patient less than 15 minutes - Subjective Interval history: - Feeling better. - Reports improvement in right thigh swelling. - Still feeling weak in RLE. - Had nausea 2/2 acid reflux on exertion today. - Constitutional Vitals: Temp Pulse Resp BP Pulse Ox 97.2 F L 88 16 129/79 95 07/03/17 07:23 07/03/17 07:23 07/03/17 07:23 07/03/17 07:23 07/03/17 07:23 General appearance: Present: A&O X 3 Exam: Gen: A&Ox3, NAD. HEENT: NCAT. Neck: No palpable lymphadenopathy or thyromegaly. CV: RRR, S1S2. No murmur. Capillary refill < 2 seconds. Pulm: CTAB. Abd: (+)BS. NDNT. Neuro: RLE weakness noted, otherwise non-focal. Skin: No rash. Ext: Right thigh swelling appreciated compared to the left. Trace pitting edema in RLE. Amputation sites appear non-infected. Dressings over bilateral feet c/d/ i. Internal Medicine: Result - Labs CBC & Chem 7: 07/02/17 04:55 07/02/17 04:55 - ABG Interpretation ABG results: PT/INR, D-dimer PT 11.0 Seconds (9.4-12.1) 07/02/17 04:55 Consult Discharge Plan - Plan Referrals: Louis Farrar MD [Primary Care Provider] -
[2017-07-03] MEDS: Sennosides/Docusate Sodium TABLET PO SCH (20:40)
[2017-07-04 05:26] LABS: Basophils % 0.7 %; Eosinophils # 0.1 K/mcL (0.0-0.6); Eosinophils % 2.6 %; Hematocrit 30.7 % (37.5-50.1); Hemoglobin 9.8 g/dL (12.9-16.9); Immature Granulocytes % 5.3 % (0-4); Lymphocytes # 0.5 K/mcL (0.6-4.6); Lymphocytes % 8.6 %; Mean Corpuscular HGB Conc 31.9 g/dL (31.6-35.5); Mean Corpuscular Hemoglobin 29.1 pg (28.0-33.3); Mean Corpuscular Volume 91.1 fL (83.0-100.0); Mean Platelet Volume 9.1 fL (9.4-12.4); Monocytes # 0.6 K/mcL (0.0-1.3); Monocytes % 10.4 %; Platelet Count 341 K/mcL (140-400); Red Blood Count 3.37 M/mcL (4.19-5.50); Red Cell Distribution Width 15.9 % (11.5-14.5); Segmented Neutrophils % 72.4 %
[2017-07-04 05:40] LABS: Platelet Estimate Normal (Normal)
[2017-07-04 05:41] LABS: Hypersegmented Neutrophils Present (Not Present)
[2017-07-04] MEDS: amLODIPine 5 MG TABLET PO SCH (08:22)
[2017-07-04] MEDS: Ascorbic Acid 500 MG TABLET PO SCH (08:22)
[2017-07-04] MEDS: *HR* LORazepam 0.5 MG TABLET PO SCH ×2 (08:22→21:07)
[2017-07-04] MEDS: Celecoxib 200 MG CAPSULE PO SCH ×2 (08:22→21:07)
[2017-07-04] MEDS: methylPREDNISolone 4 MG TABLET PO SCH ×2 (08:23→21:07)
[2017-07-04] MEDS: Metoprolol XL (24 HR) Succ 25 MG TAB.ER.24H PO SCH (08:23)
[2017-07-04] MEDS: *HR* OxyCODONE/APAP 5/325 TABLET PO PRN (13:21)
--- NOTE | 2017-07-04 14:11 | Internal Med Progress Note ---
Date of Encounter: 07/04/17 Time of Encounter: 14:00 - Assessment and plan (1) Great toe amputation status Current Visit: Yes Status: Acute Assessment and plan: Continue working with therapists and supportive care. Wound care will see the patient on Wednesday (tomorrow). Qualifiers: Laterality: left Qualified Code(s): Z89.412 - Acquired absence of left great toe (2) DVT prophylaxis Current Visit: Yes Status: Acute Assessment and plan: SCD given thigh hematoma (no pharmacological anticoagulation). (3) Thigh hematoma Current Visit: Yes Status: Acute Assessment and plan: Non-surgical as of now. No pharmacological anticoagulation because of this. Will continue to monitor clinically. Qualifiers: Encounter type: subsequent encounter Laterality: right Qualified Code(s) : S70.11XD - Contusion of right thigh, subsequent encounter (4) H/O spinal fusion Current Visit: Yes Status: Acute Assessment and plan: Currently wheelchair bound. Continue to work with therapists with the goal of returning to ambulation status. - Time Spent With Patient less than 15 minutes - Subjective Interval history: - Feeling "pretty good." No particular complaint or concern at this moment.. - Reports gradual improvement in right thigh swelling. - Constitutional Vitals: Temp Pulse Resp BP Pulse Ox 97.6 F 86 16 154/88 99 07/04/17 07:46 07/04/17 07:46 07/04/17 07:46 07/04/17 07:46 07/04/17 07:46 General appearance: Present: A&O X 3 Exam: Gen: A&Ox3, NAD. HEENT: NCAT. Neck: No palpable lymphadenopathy or thyromegaly. CV: RRR, S1S2. No murmur. Capillary refill < 2 seconds. Pulm: CTAB. Abd: (+)BS. NDNT. Neuro: RLE weakness noted, otherwise non-focal. Skin: No rash. Ext: Right thigh swelling appreciated compared to the left. Trace pitting edema in RLE. Amputation sites appear non-infected. Dressings over bilateral feet c/d/ i. Internal Medicine: Result - Labs CBC & Chem 7: 07/04/17 05:20 07/02/17 04:55 Labs: Short CBC 07/04/17 Range/Units 05:20 WBC 5.5 (4.3-11.1) K/mcL Hgb 9.8 L (12.9-16.9) g/dL Hct 30.7 L (37.5-50.1) % Plt Count 341 (140-400) K/mcL Neutrophils # 4.0 (1.6-8.9) K/mcL - ABG Interpretation ABG results: PT/INR, D-dimer PT 11.0 Seconds (9.4-12.1) 07/02/17 04:55 Consult Discharge Plan - Plan Referrals: Louis Farrar MD [Primary Care Provider] -
[2017-07-04] MEDS: Sennosides/Docusate Sodium TABLET PO SCH (21:07)
[2017-07-05 05:47] LABS: Basophils % 0.6 %; Eosinophils # 0.2 K/mcL (0.0-0.6); Eosinophils % 3.4 %; Hemoglobin 10.2 g/dL (12.9-16.9); Immature Granulocytes % 5.6 % (0-4); Lymphocytes % 15.4 %; Mean Corpuscular HGB Conc 31.9 g/dL (31.6-35.5); Mean Corpuscular Volume 90.9 fL (83.0-100.0); Mean Platelet Volume 9.3 fL (9.4-12.4); Monocytes # 0.8 K/mcL (0.0-1.3); Monocytes % 11.8 %; Neutrophils # 4.1 K/mcL (1.6-8.9); Platelet Count 361 K/mcL (140-400); Red Blood Count 3.52 M/mcL (4.19-5.50); Red Cell Distribution Width 15.8 % (11.5-14.5); Segmented Neutrophils % 63.2 %
[2017-07-05 06:01] LABS: BUN/Creatinine Ratio 27 (6-26); Blood Urea Nitrogen 32 mg/dL (8-26); Calcium 8.6 mg/dL (8.6-10.8); Carbon Dioxide 21 mEq/L (19-29); Chloride 108 mEq/L (98-109); Glucose 89 mg/dL (70-99); Osmolality,Calculated 294 (280-300); Potassium 3.8 mEq/L (3.5-4.5); Sodium 139 mEq/L (136-145); eGFR For African Americans > 60 (> 60); eGFR For Non-African Americans > 60 (> 60)
[2017-07-05] MEDS: *HR* LORazepam 0.5 MG TABLET PO SCH ×2 (08:31→21:10)
[2017-07-05] MEDS: Acetaminophen 325 MG TABLET PO PRN ×2 (08:31→21:11)
[2017-07-05] MEDS: Ascorbic Acid 500 MG TABLET PO SCH (08:32)
[2017-07-05] MEDS: Metoprolol XL (24 HR) Succ 25 MG TAB.ER.24H PO SCH (08:32)
[2017-07-05] MEDS: amLODIPine 5 MG TABLET PO SCH (08:32)
[2017-07-05] MEDS: Celecoxib 200 MG CAPSULE PO SCH ×2 (08:32→21:10)
[2017-07-05] MEDS: methylPREDNISolone 4 MG TABLET PO SCH ×2 (08:33→21:10)
[2017-07-05] MEDS ORDERED: Ondansetron ODT 4 MG TAB.RAPDIS SL PRN (11:58)
--- NOTE | 2017-07-05 12:01 | Internal Med Progress Note ---
Date of Encounter: 07/05/17 Time of Encounter: 11:59 - Assessment and plan (1) Thigh hematoma Current Visit: Yes Status: Acute Assessment and plan: Right thigh hematoma continues to reabsorb and swelling to the right thigh has diminished. No acute issues. Patient to continue with mobilization per physical therapy. We will continue to monitor. Qualifiers: Encounter type: subsequent encounter Laterality: right Qualified Code(s) : S70.11XD - Contusion of right thigh, subsequent encounter (2) Great toe amputation status Current Visit: Yes Status: Acute Assessment and plan: Continue working with therapists and supportive care. We will continue with daily dressing changes. Wound care will evaluate wounds today. Qualifiers: Laterality: left Qualified Code(s): Z89.412 - Acquired absence of left great toe (3) H/O spinal fusion Current Visit: Yes Status: Acute Assessment and plan: No acute issues. Surgical and appears well-healed. Neurological exam appears unchanged (4) CKD (chronic kidney disease) Current Visit: No Status: Chronic Assessment and plan: No acute issues. Today's labs show creatinine 1.15. We will continue to monitor serial labs. Patient to continue on current medications. Qualifiers: Chronic kidney disease stage: stage 3 (moderate) Qualified Code(s): N18.3 - Chronic kidney disease, stage 3 (moderate) (5) DVT prophylaxis Current Visit: Yes Status: Acute (6) HTN (hypertension) Current Visit: No Status: Chronic Assessment and plan: Vital signs stable. We will continue with current medications Qualifiers: Hypertension type: essential hypertension Qualified Code(s): I10 - Essential (primary) hypertension - Subjective Interval history: Patient appears relaxed, but complains of nausea throughout the morning. Patient states that over the weekend he has had several episodes of nausea. Denies any vomiting. States that he has had some abdominal cramping, but has had regular bowel movements. Patient denies any other discomforts or shortness of breath. States that this pain is diminished greatly to the right thigh at the hematoma site. - Constitutional Vitals: Temp Pulse Resp BP Pulse Ox 97.2 F L 68 18 137/88 100 07/05/17 07:00 07/05/17 07:00 07/05/17 07:00 07/05/17 07:00 07/05/17 07:00 General appearance: Present: A&O X 3, pleasant - Head Head exam: Present: atraumatic, normocephalic - Eye Eye exam: Present: EOMI, PERRL, conjuntiva pink, sclera anicteric Pupils: Present: PERRL - Neck Neck exam general surgery: Present: supple, trachea midline. Absent: lymphadenopathy - Respiratory Respiratory exam: Present: CTAB. Absent: accessory muscle use, rales, rhonchi, wheezes - Cardiovascular Cardiovascular exam: Present: RRR, +S1, +S2. Absent: diastolic murmur, gallop, rubs, systolic murmur - GI/Abdominal GI/Abdominal exam: Present: normal bowel sounds, soft, no peritoneal signs. Absent: distended, tenderness - Extremities Exam Extremities exam: Present: warm, radial pulses palpable and symmetrical. Absent : calf tenderness, cyanotic, pedal edema Additional comments: Right thigh remains slightly swollen with a large firm ecchymotic area to the anterior posterior area. Bilateral feet continue with Kerlix dressing dry and intact - Neurological Exam Neurological exam: Present: CN II-XII intact, oriented X3, no focal deficits. Absent: pronater drift, facial droop, speech deficit Additional comments: She continues with generalized weakness. Patient remains nonweightbearing to bilateral feet due to recent surgical intervention of osteomyelitis - Skin Skin exam: Present: dry, intact Internal Medicine: Result - Labs CBC & Chem 7: 07/05/17 05:10 07/05/17 05:10 Labs: Short CBC 07/05/17 Range/Units 05:10 WBC 6.4 (4.3-11.1) K/mcL Hgb 10.2 L (12.9-16.9) g/dL Hct 32.0 L (37.5-50.1) % Plt Count 361 (140-400) K/mcL Neutrophils # 4.1 (1.6-8.9) K/mcL BMP 07/05/17 05:10 Sodium 139 Potassium 3.8 Chloride 108 Carbon Dioxide 21 BUN 32 H Creatinine 1.17 Glucose 89 Calcium 8.6 - ABG Interpretation ABG results: PT/INR, D-dimer PT 11.0 Seconds (9.4-12.1) 07/02/17 04:55 - VTE Documentation of Mechanical Device: Intermittent pneumatic compression device Consult Discharge Plan - Plan Referrals: Louis Farrar MD [Primary Care Provider] -
[2017-07-05] MEDS: *HR* OxyCODONE/APAP 5/325 TABLET PO PRN (12:56)
[2017-07-05] MEDS: Sennosides/Docusate Sodium TABLET PO SCH (21:11)
[2017-07-06 07:26] VITALS: BP 111/68
[2017-07-06] MEDS: amLODIPine 5 MG TABLET PO SCH (08:06)
[2017-07-06] MEDS: methylPREDNISolone 4 MG TABLET PO SCH (08:06)
[2017-07-06] MEDS: Ascorbic Acid 500 MG TABLET PO SCH (08:07)
[2017-07-06] MEDS: Metoprolol XL (24 HR) Succ 25 MG TAB.ER.24H PO SCH (08:07)
[2017-07-06] MEDS: Celecoxib 200 MG CAPSULE PO SCH (08:07)
[2017-07-06] MEDS: *HR* LORazepam 0.5 MG TABLET PO SCH (08:07)
[2017-07-06] MEDS: *HR* OxyCODONE/APAP 5/325 TABLET PO PRN (08:15)
--- NOTE | 2017-07-06 14:01 | Discharge Summary ---
Date of Encounter: 07/06/17 Time of Encounter: 13:59 - Discharge Diagnosis (1) History of lumbar laminectomy for spinal cord decompression Priority: Primary Status: Acute (2) Hx of decompressive lumbar laminectomy Priority: Primary Status: Acute (3) CKD (chronic kidney disease) Priority: Secondary Status: Chronic Qualifiers: Chronic kidney disease stage: stage 3 (moderate) Qualified Code(s): N18.3 - Chronic kidney disease, stage 3 (moderate) (4) H/O spinal fusion Priority: Primary Status: Acute - Discharge Medications Home Medications: Acetaminophen [Tylenol] 650 mg PO Q6HR PRN 10/14/16 [History] Ascorbic Acid [C-1000] 1,000 mg PO DAILY 10/14/16 [History] Calcitriol [Rocaltrol] 0.25 mcg PO HS 10/14/16 [History] Cyclobenzaprine [Flexeril] 5 mg PO TID PRN 10/14/16 [History] Ferrous Sulfate [Iron] 325 mg PO BIDWM 10/14/16 [History] Hydroxychloroquine [Plaquenuil] 200 mg PO BID 10/14/16 [History] Paroxetine HCl [Paxil] 20 mg PO DAILY 10/14/16 [History] Sennosides/Docusate Sodium [Senna-S Tablet] 1 tab PO HS 10/14/16 [History] methylPREDNISolone [Medrol] 4 mg PO BID 10/14/16 [History] Pantoprazole Sodium [Protonix] 40 mg PO DAILY 06/18/17 [History] Alendronate Sodium 70 mg PO QWEEK 06/26/17 [History] Celecoxib [Celebrex] 200 mg PO BID 06/26/17 [History] LORazepam [Ativan] 0.5 mg PO BID 06/26/17 [History] Metoprolol XL (24 HR) Succ [Toprol Xl] 50 mg PO DAILY tab.er.24h 07/01/17 [Rx] OxyCODONE/APAP 5/325 [Percocet 5/325 MG] 1 each PO Q6HR PRN #15 tablet 07/01/17 [Rx] amLODIPine [Norvasc] 10 mg PO DAILY tablet 07/01/17 [Rx] Allergies/Adverse Reactions: 3 Allergy/AdvReac Type Severity Reaction Status Date / Time carvedilol [From Coreg] Allergy Gastrointestinal Verified 06/18/17 01:17 Upset diphenhydramine Allergy Chills Verified 06/18/17 01:17 [From Benadryl] Date of admission: 07/01/17 16:35 Primary care physician: Louis Farrar MD Consults: 07/01/17 16:46 Consult to Occupational Therapy [CONS] Routine Comment: Toe Amputation Reason for Consult: Toe Amputation Consult to Physical Therapy [CONS] Routine Comment: Toe Amputation Reason for Consult: Toe Amputation Consult to Recreational Therapy [CONS] Routine Comment: Consult to Electorate Officer [CONS] Routine Reason for SW Consult: Toe Amputation 07/03/17 17:21 Consult to Wound Care [CONS] Routine Reason for Consult: amputation of 5th toe right foot and great toe left foot Call Completed: Yes Discharging clinician: Abilio Wharton Anticipated date of discharge: 07/06/17 - Patient Status Disposition: Home Health Service Condition: Good Functional capacity at discharge: wheelchair bound Overall status at discharge: patient is not back to baseline - Discharge Instructions Instructions: Toe Amputation (DC) Follow Up With: magen kee [Other] - 07/07/17 1:40 pm Alexsander Fleming MD [Partnered Physician] - 08/03/17 3:30 pm (follow up with hemotology) Nadeem Ruth MD [Partnered Physician] - 07/27/17 10:40 am (follow up appointment for amputations at [facility] in [facility]) Louis Farrar MD [Primary Care Provider] - 07/08/17 11:00 am (follow up appointment) - Diet and Activity Activity: as per physical therapy Diet: diabetic diet Interval History: Mr. Hunt arise status post decompression laminectomy. In these had multiple problems with spine surgery. He has severe osteoporosis which caused collapse of vertebral body which caused nerve compression etc. Hospital course: Mr. Hunt is a 66 year old male Who came here for rehabilitation after the above-mentioned complaint. He is done reasonably well his color is better his hemoglobin is now stable. He apparently had a large bleed into his anterior right thigh and not very anemic and had received blood. I transferred him to [facility] where he was seen and evaluated and observed. Apparently the bleeding stopped. Other than needle aspiration of a small amount no surgical attempt was made - Time Spent with Patient Total time spent providing and/or coordinating discharge services: Less than 30 minutes - Constitutional Vitals: Temp Pulse Resp BP Pulse Ox 97.5 F L 84 18 111/68 95 07/06/17 07:25 07/06/17 07:25 07/06/17 07:25 07/06/17 07:25 07/06/17 07:25 General appearance: Present: A&O X 3, pleasant - Head Head exam: Present: atraumatic, normal inspection, normocephalic - Neck Neck exam general surgery: Present: supple, trachea midline. Absent: lymphadenopathy - Respiratory Respiratory exam: Present: CTAB. Absent: accessory muscle use, rales, rhonchi, wheezes - Cardiovascular Cardiovascular exam: Present: RRR, +S1, +S2. Absent: diastolic murmur, gallop, rubs, systolic murmur - Expanded Lower Extremities Exam Neuro vascular tendon exam: Present: sensory deficit - Incison Incision: Present: clean and dry Comments: The lateral aspect of the right foot we remove sutures today. The suture line is clean and dry and the scab was removed with sterile dressing. We will put some Steri-Strips just to watch it. But they have been in since June 15. Now on the left foot it was the great toe removal and that incision was also clean and dry and the sutures were removed with a similar treatment. He was advised to follow-up with his director of consumer marketing which she R he has an appointment for. - VTE Documentation of Mechanical Device: Intermittent pneumatic compression device
--- NOTE | 2017-07-06 14:08 | Physician Discharge Referral ---
Home Health/Hosp Referral Info Transfer to: Home Health Provider in Charge Post Discharge: PCP - Diagnosis (1) History of lumbar laminectomy for spinal cord decompression Priority: Primary Status: Acute (2) Hx of decompressive lumbar laminectomy Priority: Primary Status: Acute (3) CKD (chronic kidney disease) Priority: Secondary Status: Chronic (4) H/O spinal fusion Priority: Primary Status: Acute - Respiratory Orders Smoking Cessation: Smoking cessation has been advised. For more information, call the [place] Tobacco Quit Line at 6-608-FBTZ-NOW. - Diet/Nutrition Diet/Nutrition Orders: No Concentrated Sweets - Activity Activity Orders: Bedrest - Services Needed Following services are medically necessary services: Nursing, Physical Therapy - Transfer Medications Home Medications: Acetaminophen [Tylenol] 650 mg PO Q6HR PRN 10/14/16 [History] Ascorbic Acid [C-1000] 1,000 mg PO DAILY 10/14/16 [History] Calcitriol [Rocaltrol] 0.25 mcg PO HS 10/14/16 [History] Cyclobenzaprine [Flexeril] 5 mg PO TID PRN 10/14/16 [History] Ferrous Sulfate [Iron] 325 mg PO BIDWM 10/14/16 [History] Hydroxychloroquine [Plaquenuil] 200 mg PO BID 10/14/16 [History] Paroxetine HCl [Paxil] 20 mg PO DAILY 10/14/16 [History] Sennosides/Docusate Sodium [Senna-S Tablet] 1 tab PO HS 10/14/16 [History] methylPREDNISolone [Medrol] 4 mg PO BID 10/14/16 [History] Pantoprazole Sodium [Protonix] 40 mg PO DAILY 06/18/17 [History] Alendronate Sodium 70 mg PO QWEEK 06/26/17 [History] Celecoxib [Celebrex] 200 mg PO BID 06/26/17 [History] LORazepam [Ativan] 0.5 mg PO BID 06/26/17 [History] Metoprolol XL (24 HR) Succ [Toprol Xl] 50 mg PO DAILY tab.er.24h 07/01/17 [Rx] OxyCODONE/APAP 5/325 [Percocet 5/325 MG] 1 each PO Q6HR PRN #15 tablet 07/01/17 [Rx] amLODIPine [Norvasc] 10 mg PO DAILY tablet 07/01/17 [Rx] Allergies/Adverse Reactions: 3 Allergy/AdvReac Type Severity Reaction Status Date / Time carvedilol [From Coreg] Allergy Gastrointestinal Verified 06/18/17 01:17 Upset diphenhydramine Allergy Chills Verified 06/18/17 01:17 [From Benadryl] Certification: Further, I certify that my clinical findings support that this patient is homebound (i.e. absences from home require considerable and taxing effort and are for medical reasons or scientologist services or infrequently or short duration when for other reasons) because: Homebound Reason: Patient requires assistance of a person or device to safely leave home Attestation: My signature below is to certify that this patient is under my care and that I, or nurse practitioner, or a physician's state tested nursing assistant working with me, has a face-to -face encounter with this patient.
== END 2017-07-06 17:15 | disposition home health service (06) | DRG 560 ==
LOC: INPGRE 16:35
PROVIDERS: ADMIT Internal Medicine; ATTEND Internal Medicine